=== PATIENT | female | born 1965 | race Caucasian/White ===

== ENCOUNTER 2020-07-18 14:28 | Outpatient (CLI) | payer OTHER, SELFPAY ==
--- NOTE | 2020-07-18 14:30 | MM_ITS ---
WS: [id number] SCREENING DIGITAL MAMMOGRAM WITH CAD HISTORY: SCREENING COMPARISON: 10/17/2016, 12/29/2018 and 10/30/2017 Bilateral CC and MLO views submitted. Computer aided detection analyzed. Breast composition: There are scattered areas of fibroglandular density. 8mm nodule posterior LEFT breast near 3:00. There is an additional nodule towards the upper outer soren drant which has been present on multiple prior examinations and stable. Otherwise the parenchymal pat tern is stable. MM/[id number] IMPRESSION: BI-RADS: 0-Incomplete: Need additional imaging evaluation FOLLOW UP: Need Additional Imaging LEFT breast: Spot compression views (CC and MLO). True ML. Ultrasound to follow if abnormality persists.
== END 2020-07-18 14:29 | disposition home or self-care (01) ==
LOC: RADSHAW 14:28
PROVIDERS: PCP Family Medicine; Visit Provider Family Medicine
DX: Z12.31 Encounter for screening mammogram for malignant neoplasm of breast (principal)
CPT/HCPCS: 77067

== ENCOUNTER 2020-08-14 12:10 | Outpatient (CLI) | payer OTHER, SELFPAY ==
--- NOTE | 2020-08-14 12:28 | MM_ITS ---
WS: [id number] ADDITIONAL VIEWS LEFT MAMMOGRAM LEFT BREAST ULTRASOUND HISTORY: 8 MM NODULE COMPARISON: 07/18/2020, 12/29/2018 LEFT MAMMOGRAM: Spot compression views and true ML. Slightly lobulated 8 mm mass in the LEFT breast at 3-4 o'clock. Persists on additional imaging. LEFT BREAST ULTRASOUND 2-D and color Doppler imaging submitted. At 4:00, 7 cm from the nipple is a hypoechoic mass which is slightly ovoid and lobulated in shape cipriano suring 7 x 6 x 5 mm. This corresponds to the mass seen by mammography. There are additional prominent ducts at 3:00 2 cm from the nipple. MM/[place] [id number] IMPRESSION: BI-RADS: 3-Probably Benign FOLLOW UP: 6 Month Follow-up Hypoechoic nodule which is probably a complex cyst at 4:00, 7 cm from the nippl e. Recommend 6 month LEFT breast follow-up by ultrasound.
== END 2020-08-14 12:11 | disposition home or self-care (01) ==
LOC: RADSHAW 12:15
PROVIDERS: PCP Family Medicine; Visit Provider Family Medicine
DX: N63.23 Unspecified lump in the left breast, lower outer quadrant (principal)
CPT/HCPCS: 76642; 77065

== ENCOUNTER 2021-01-28 07:39 | Outpatient (CLI) | payer OTHER, SELFPAY ==
--- NOTE | 2021-01-28 07:44 | US_ITS ---
WS: [id number] ULTRASOUND BREAST LEFT TECHNIQUE: Ultrasound left breast focused area of concern. CLINICAL INFORMATION: LT BREAST NODULE 6 MO F/U COMPARISON: August 14, 2020 FINDINGS: Again seen is the hypoechoic nodule the 4:00 position 7 cm from the nipple which appears cystic and m easures 7.8 x 5.9 x 5.3 mm unchanged and appearance since August 14, 2020. One or 2 small septations . Additional cysts in the left breast at the 3:00 position 2 cm from the nipple measuring 7 to 8 mm sim ilar to previous. Mild ductal ectasia. Findings have a benign appearance and recommend return to [facility] screening mammography. US/US breast LT limited* [id number] IMPRESSION: BI-RADS 2 benign RECOMMEND RETURN TO ANNUAL SCREENING MAMMOGRAPHY.
== END 2021-01-28 07:40 | disposition home or self-care (01) ==
LOC: RADSHAW 07:42
PROVIDERS: PCP Family Medicine; Visit Provider Family Medicine
DX: N63.20 Unspecified lump in the left breast, unspecified quadrant (principal)
CPT/HCPCS: 76642

== ENCOUNTER 2021-09-06 08:00 | Outpatient (CLI) | payer OTHER, SELFPAY ==
--- NOTE | 2021-09-06 08:16 | MM_ITS ---
WS: [id number] Exam: [place] [id number] Date/Time of Exam: 09/06/2021 8:30 AM Reason For Exam: SCREENING VIEWS: MLO and CC views both breasts. Comparison made with prior exam of 10/20/2017, 12/29/2018, and 07/18/2020. Findings: There are stable appearing nodular densities in both breasts. No suspicious calcification or architec tural distortion. Scattered fibroglandular densities MM/[place] [id number] Impression: BI-RADS: 2-Benign FOLLOW-UP: 1 Year Follow-up This mammogram was also analyzed by the Computer Aided Detection System R2 Imag e Uptwister Tender.
== END 2021-09-06 08:01 | disposition home or self-care (01) ==
LOC: RADSHAW 08:05
PROVIDERS: PCP Family Medicine; Visit Provider Family Medicine
DX: Z12.31 Encounter for screening mammogram for malignant neoplasm of breast (principal)
CPT/HCPCS: 77067

== ENCOUNTER 2022-09-24 09:32 | Outpatient (CLI) | payer OTHER, SELFPAY ==
--- NOTE | 2022-09-24 09:37 | MM_ITS ---
WS: [id number] BILATERAL SCREENING DIGITAL TOMOSYNTHESIS MAMMOGRAM WITH CAD HISTORY: SCREENING COMPARISON: 09/06/2021 and 07/18/2020 Bilateral CC and MLO views with tomosynthesis and synthetic mammography submitted. Computer aided det ection analyzed. Breast composition: There are scattered areas of fibroglandular density. No suspicious masses, microc alcifications or architectural distortion. Dense fibroglandular tissue in the anterior breast. A few benign calcifications. MM/[place] [id number] IMPRESSION: BI-RADS: 2-Benign FOLLOW UP: 1 Year Follow-up
== END 2022-09-24 09:33 | disposition home or self-care (01) ==
LOC: RAD 09:33
PROVIDERS: PCP Family Medicine; Visit Provider Family Medicine
DX: Z12.31 Encounter for screening mammogram for malignant neoplasm of breast (principal)
CPT/HCPCS: 77063; 77067

== ENCOUNTER 2023-10-05 08:52 | Outpatient (CLI) | payer OTHER, SELFPAY ==
--- NOTE | 2023-10-05 09:21 | MM_ITS ---
WS: [id number] BILATERAL SCREENING DIGITAL TOMOSYNTHESIS MAMMOGRAM WITH CAD HISTORY: SCREENING COMPARISON: None available. Bilateral CC and MLO views with tomosynthesis and synthetic mammography submitted. Computer aided det ection analyzed. Breast composition: There are scattered areas of fibroglandular density. No suspicious masses, microc alcifications or architectural distortion. There are a few scattered benign calcifications and intram ammary lymph nodes. IMPRESSION: MM/[place] [id number] BI-RADS: 2-Benign FOLLOW UP: 1 Year Follow-up
== END 2023-10-05 08:53 | disposition home or self-care (01) ==
LOC: RAD 08:52
PROVIDERS: PCP Family Medicine; Visit Provider Family Medicine
DX: Z12.31 Encounter for screening mammogram for malignant neoplasm of breast (principal)
CPT/HCPCS: 77063; 77067

== ENCOUNTER 2024-05-04 12:18 | Emergency (ER) | payer OTHER, SELFPAY ==
[2024-05-04 12:22] VITALS: BP 168/98; PULSE 109; RESP 16; TEMP 36.8; O2SAT 96; BMI 45.1
--- NOTE | 2024-05-04 12:38 | CT_ITS ---
WS: [id number] CT ABDOMEN PELVIS TECHNIQUE: Noncontrast CT of the abdomen and pelvis with coronal and sagittal reformatted images. CLINICAL INFORMATION: flank pain COMPARISON: None. DLP: 1223.[address] scans at [facility] use at least one of these dose optimization techniques: automated e xposure control; mA and/or kV adjustment per patient size (includes targeted exams where dose is matc hed to clinical indication); or iterative reconstruction. FINDINGS: Small esophageal hernia. Small nodule on the RIGHT fissure measuring 4 mm. Mild diffuse fatty infiltr ation of the liver. Mild hepatomegaly. Small liver cysts. Small cysts or hemangiomas in the spleen. Adrenal glands are normal. Normal noncontrast pancreas. No hydronephrosis in either kidney. No obstru cting renal or ureteral calculi. Normal caliber abdominal aorta. Aortic calcification. No free fluid in the abdomen or pelvis. Anteverted uterus. Disc osteophyte complexes at L1-2 and L4-5 with moderate central canal stenosis L1-2 and moderate to severe central canal stenosis L4-5. CT/CT kidney stone [id number] IMPRESSION: 1. No hydronephrosis in either kidney. 2. No obstructing renal or ureteral calculi. 3. Moderate central canal stenosis L1-2 and moderate to severe L4-5 due to dis c osteophyte complexes. 4. Small esophageal hiatal hernia.
--- NOTE | 2024-05-04 12:54 | ED_ITS ---
HPI - Abdominal Pain 2 General: Chief Complaint: Abdominal Pain Stated Complaint: blood in urine, back pain, referral from [facility] Time Seen by Provider: 05/04/24 12:37 Source: patient Mode of arrival: ambulatory History of Present Illness: 59-year-old female presents emergency ro om complaining of hematuria and left flank pain radiating to her groin that began yesterday she was seen as an outpatient presumed to have a bladder infection treated first day. Pain is worsened she presents emergency room today at the direction of the outpatient clinic after culture came back negative. She has had increasing hematuria as well. No vomiting no diarrhea no fever sweats or chills no shortness of breath or chest pain MD elicited complaint: flank pain Onset (ago): day(s) Pain Consistency: constant Location: L flank Severity: severe Quality: sharp Radiation: other Exacerbating factors: nothing Relieving factors: nothing Associated Symptoms: Denies anorexia, belching, bloating, change in bowel habits, change in stool character, chills, coffee ground emesis, constipation, GI cramping, diarrhea, dyspepsia, dysuria, excessive flatus, fever(s), heartburn, hematochezia, hematuria, hematemesis, fecal incontinence, loose stools, melena, nausea, poor appetite, syncope and vomiting Review of Systems 2 Const: Denies: fever(s) or chills Card: Denies: chest pain or syncope Resp: Denies: dyspnea GI: Denies: abdominal pain, nausea, vomiting, hematemesis, coffee ground emesis, heartburn, diarrhea, constipation, bloating, GI cramping, belching, excessive flatus, fecal incontinence, change in bowel habits, change in stool character, hematochezia or melena : Denies: dysuria, urinary frequency, urinary urgency or hematuria Musc: Denies: neck pain or back pain Skin/Breast: Denies: rash Physical Exam 2 Const: GENERAL APPEARANCE: cooperative ORIENTATION/CONSCIOUSNESS: Yes awake, Yes oriented to person, Yes oriented to place and Yes oriented to time HENMT: COMMON NORMALS: normocephalic, atraumatic and hearing grossly normal bilaterally HEAD & SCALP: normocephalic and atraumatic Resp: COMMON NORMALS: normal respiratory effort, No retractions, No use of accessory muscles and clear to auscultation bilaterally AUSCULTATION: clear to auscultation bilaterally Cardio: COMMON NORMALS: regular rate, regular rhythm and No murmurs present (Cardio) RATE: regular rate RHYTHM: regular rhythm GI: COMMON NORMALS: Soft to palpation and No hepatosplenomegaly present A USCULTATION: Yes normoactive bowel sounds PALPATION: Yes Soft to palpation, No Tenderness to palpation present (GI), No Guarding due to palpation present (GI) and Yes No hepatosplenomegaly present : COMMON NORMALS: Yes no CVA tenderness BLADDER/KIDNEY EXAM: Yes no CVA tenderness and Yes CVA tenderness Back/Pelvis: COMMON NORMALS: no CVA tenderness GENERAL BACK: Yes CVA tenderness CVA tenderness: left Extremity: COMMON NORMALS: normal to inspection, capillary refill normal, no clubbing, cyanosis or edema, no calf tenderness and no pedal edema Neuro: SENSORIUM/ORIENTATION: Yes oriented to person, Yes oriented to place and Yes oriented to time Skin: COMMON NORMALS: no rashes or lesions noted GENERAL SKIN EXAM: no rashes or lesions noted Course 2 Vital Signs: Vital signs: Vital Signs Temperature 98.3 F 05/04/24 12:22 Pulse Rate 103 H 05/04/24 14:28 Respiratory Rate 16 05/04/24 12:22 Blood Pressure 163/141 05/04/24 14:28 Pulse Oximetry 96 05/04/24 14:28 Oxygen Delivery Me thod Room Air 05/04/24 12:22 MDM - Abdominal Pain Medical Decision Making Urine shows 50-100 white blood cells or outfield. Will switch to cefdinir. Culture urine patient did a mild leukocytosis but has a persistent fever return. CT did not show any sign of obstruction or nephrolithiasis. Medical Records I reviewed the patient's medical records. Lab Data I reviewed the patient's lab results. 05/04/24 12:55 05/04/24 12:55 Labs/Radiology: Radiology Impressions Abdomen/Pelvis CT 05/04/24 12:38 IMPRESSION: 1. No hydronephrosis in either kidney. 2. No obstructing renal or ureteral calculi. 3. Moderate central canal stenosis L1-2 and moderate to severe L4-5 due to disc osteophyte complexes. 4. Small esophageal hiatal hernia. Laboratory Results WBC 12.70 10^3/uL (3.29-11.43) H 05/04/24 12:55 RBC 5.11 10^6/uL (3.85-5.65) 05/04/24 12:55 Hgb 14.80 g/dL (11.27-16.99) 05/04/24 12:55 Hct 45.2 % (36-47) 05/04/24 12:55 MCV 88.5 fl (85-98) 05/04/24 12:55 MCH 29.0 pg (27-33) 05/04/24 12:55 MCHC 32.7 g/dL (30-55) 05/04/24 12:55 RDW 13.2 % (12.1-15.1) 05/04/24 12:55 Plt Count 391 10^3/cmm (157-399) 05/04/24 12:55 MPV 8.9 fL (7.4-10.4) 05/04/24 12:55 Neut % (Auto) 59.1 % 05/04/24 12:55 Lymph % (Auto) 34.3 % 05/04/24 12:55 [place] % (Auto) 4.9 % 05/04/24 12:55 Eos % (Auto) 1.0 % 05/04/24 12:55 Baso % (Auto) 0.5 % 05/04/24 12:55 Neut # (Auto) 7.51 10^3/uL (1.8-7.7) 05/04/24 12:55 Lymph # (Auto) 4.4 10^3/uL (0.8-4.8) 05/04/24 12:55 [place] # (Auto) 0.6 10^3/uL (0.2-0.9) 05/04/24 12:55 Eos # (Auto) 0.1 10^3/uL (0.0-0.8) 05/04/24 12:55 Baso # (Auto) 0.1 10^3/uL (0.0-0.1) 05/04/24 12:55 Nucleated RBC % (auto) 0 % 05/04/24 12:55 Nucleated RBCs # 0.0 /100WBC 05/04/24 12:55 Sodium 140 mmol/L (136-145) 05/04/24 12:55 Potassium 4.0 mmol/L (3.5-5.1) 05/04/24 12:55 Chloride 104 mmol/L (98-107) 05/04/24 12:55 Carbon Dioxide 19 mmol/L (22-29) L 05/04/24 12:55 Anion Gap 21.0 (5-19) H 05/04/24 12:55 BUN 9 mg/dL (8-23) 05/04/24 12:55 Creatinine 0.7 mg/dL (0.5-0.9) 05/04/24 12:55 GFR Calculation 85.4 mL/min (90-130) L 05/04/24 12:55 Glucose 92 mg/dL (65-115) 05/04/24 12:55 Calculated Osmolality 288 mOsm/kg (285-295) 05/04/24 12:55 Lactic Acid 1.0 mmol/L (0.5-2.2) 05/04/24 12:55 Calcium 9.3 mg/dL (8.5-10.5) 05/04/24 12:55 Total Bilirubin 0.8 mg/dL (0.15-1.2) 05/04/24 12:55 AST 17 U/L (0-32) 05/04/24 12:55 ALT 16 U/L (0-33) 05/04/24 12:55 Alkaline Phosphatase 84 U/L (35-105) 05/04/24 12:55 Total Protein 7.6 g/dL (6.6-8.7) 05/04/24 12:55 Albumin 4.2 g/dL (3.5-5.2) 05/04/24 12:55 Globulin 3.4 g/dL (1.3-4.6) 05/04/24 12:55 Urine Color Yellow (Yellow) 05/04/24 12:41 Urine Appearance Slightly cloudy (CLEAR) 05/04/24 12:41 Urine pH 5 (5-7) 05/04/24 12:41 Ur Specific [place] 1.020 (1.005-1.030) 05/04/24 12:41 Urine Protein 1+ (Negative) H 05/04/24 12:41 Urine Glucose (UA) Norm (Normal) 05/04/24 12:41 Urine Ketones 2+ (Negative) H 05/04/24 12:41 Urine Blood 3+ (Negative) H 05/04/24 12:41 Urine Nitrate Negative (Negative) 05/04/24 12:41 Urine Bilirubin Neg (Negative) 05/04/24 12:41 Urine Urobilinogen 1 mg/dL (Negative) H 05/04/24 12:41 Ur Leukocyte Esterase Trace (Negative) H 05/04/24 12:41 Urine RBC 0-4 /hpf (0-2) H 05/04/24 12:41 Urine WBC 51-100 /hpf (0-5) 05/04/24 12:41 Ur Squamous Epith Cells 0-4 /hpf (0-5) H 05/04/24 12:41 Amorphous Sediment Not Reportable 05/04/24 12:41 Urine Bacteria 1+ /hpf (NONE) H 05/04/24 12:41 All radiology interpretation(s) finalized by discharge Discharge Plan Discharge Patient Disposition: Home Clinical Impression: Cystitis Condition: Stable Prescriptions: New cefdinir 300 mg capsule 300 mg PO BID 10 Days Qty: 20 0RF Discontinued amoxicillin-pot clavulanate [Augmentin] 875-125 mg Tablet 1 tab PO BID No Action cetirizine 10 mg Tablet 10 mg PO DAILY lisinopril 5 mg tablet 5 mg PO DAILY albuterol sulfate 90 mcg/actuation HFA aerosol inhaler 1 puff INHALATION Q4H PRN (Reason: Wheezing) Discharge Orders: Discharge ED (Routine); Ordered 05/04/24 Ordered By: Chemo Morrison Referrals: Juan Pickett MD [Primary Care Provider] - Discharge Diet: Usual diet Discharge Activity: Increase activity as tolerated Patient Instructions: Urinary Tract Infection in Women (ED), Opioid Safety, Pain Management Activity Restrictions/Additional Instructions: Thank you for choosing [facility] for your healthcare needs today. It is very important that you follow up as instructed or that you return to the Emergency Department should you have concerns or if your condition changes or worsens in any way. You are seen in the emergency room with complaint of flank pain. Your white count was slightly elevated there is a large number of white blood cells in her urine. The urine will be cultured. Recommend stopping the Augmentin and starting on cefdinir 301 tablet twice daily. Follow-up with your primary care doctor Coding Level of Care Code ED Boat Driver for Ruby Hoskins
[2024-05-04 13:01] LABS: Add Urine Microscopic? YES; Bilirubin Urine Neg (Negative); Blood Urine 3+ (Negative); Glucose Urine UA Norm (Normal); Ketones Urine 2+ (Negative); Leukocyte Esterase Urine Trace (Negative); Nitrate Urine Negative (Negative); Protein Urine 1+ (Negative); Urine Appearance Slightly Cloudy (CLEAR); Urine Color Yellow (Yellow); Urobilinogen Urine 1 mg/dL (Negative); pH Urine 5 (5-7)
[2024-05-04 13:02] LABS: RBC Urine 0-4 /hpf (0-2)
[2024-05-04 13:03] LABS: Add Urine Culture? Yes; Bacteria Urine 1+ /hpf; Squamous Epithelial Cell Urine 0-4 /hpf (0-5); WBC Urine 51-100 /hpf (0-5)
[2024-05-04 13:16] VITALS: BP 163/141; PULSE 105; O2SAT 96
[2024-05-04 13:19] LABS: Basophils # 0.1 10^3/uL (0.0-0.1); Basophils % 0.5 %; Eosinophils # 0.1 10^3/uL (0.0-0.8); Hematocrit 45.2 % (36-47); Lymphocytes # 4.4 10^3/uL (0.8-4.8); Lymphocytes % 34.3 %; Mean Corpuscular HGB Conc 32.7 g/dL (30-55); Mean Corpuscular Volume 88.5 fl (85-98); Mean Platelet Volume 8.9 fL (7.4-10.4); Monocytes # 0.6 10^3/uL (0.2-0.9); Monocytes % 4.9 %; Neutrophils # 7.51 10^3/uL (1.8-7.7); Neutrophils % 59.1 %; Nucleated Red Blood Cells % 0 %; Platelet Count 391 10^3/cmm (157-399); Red Blood Count 5.11 10^6/uL (3.85-5.65); Red Cell Distribution Width 13.2 % (12.1-15.1)
[2024-05-04 13:43] LABS: Alanine Aminotransferase 16 U/L (0-33); Albumin Level 4.2 g/dL (3.5-5.2); Alkaline Phosphatase 84 U/L (35-105); Aspartate Amino Transferase 17 U/L (0-32); Blood Urea Nitrogen 9 mg/dL (8-23); Calcium 9.3 mg/dL (8.5-10.5); Carbon Dioxide 19 mmol/L (22-29); Chloride 104 mmol/L (98-107); Creatinine Clr Calc Pharmacy 116.5477; Globulin 3.4 g/dL (1.3-4.6); Glomerular Filtration Rate 85.4 mL/min (90-130); Glucose 92 mg/dL (65-115); Osmolality Calculated 288 mOsm/kg (285-295); Sodium 140 mmol/L (136-145); Total Bilirubin 0.8 mg/dL (0.15-1.2); Total Protein 7.6 g/dL (6.6-8.7)
[2024-05-04 14:28] VITALS: BP 163/141; PULSE 103; O2SAT 96
== END 2024-05-04 14:00 | disposition home or self-care (01) ==
PROVIDERS: Emergency Provider Family Medicine; PCP Family Medicine
DX: N30.90 Cystitis, unspecified without hematuria (principal)
CPT/HCPCS: 36415; 74176; 80053; 81001; 83605; 85025; 87040; 87086; 99284

== ENCOUNTER 2024-08-13 06:38 | Inpatient (IN) | payer OTHER, SELFPAY ==
[2024-08-13] VITALS (49 sets, daily range): BP systolic 111–176; BP diastolic 44–149; PULSE 82–148; RESP 16–34; TEMP 36.6–37; O2SAT 92–100; BMI 38.7
--- NOTE | 2024-08-13 06:52 | XRR_ITS ---
PROCEDURE INFORMATION: Exam: XR Chest Exam date and time: 08/13/2024 6:59 AM Age: 59 years old Clinical indication: Cough and dyspnea; TECHNIQUE: Imaging protocol: Radiologic exam of the chest. Views: 1 view. COMPARISON: CR XR chest 1V [id number] 02/08/2019 10:42 PM FINDINGS: Lungs: Unremarkable. No consolidation. Pleural spaces: Unremarkable. No pleural effusion. No pneumothorax. Heart/Mediastinum: Unremarkable. No cardiomegaly. Bones/joints: Unremarkable. XR/XR chest 1V portable [id number] IMPRESSION: No acute findings.
--- NOTE | 2024-08-13 06:54 | ED_ITS ---
HPI - Arrhythmia/Palpitations 2 General: Chief Complaint: Arrhythmia/Palpitations Stated Complaint: SOB, CP Time Seen by Provider: 08/13/24 06:52 History of Present Illness: 59-year-old female who presents to the e mergency room with complaints of palpitations racing heart rate shortness of breath and some mild chest comfort radiated to her neck and back. This began suddenly overnight that he said he woke up with a drug 2 AM she has not had any fever sweats chills or cough recently. She has no known history of any coronary artery disease no known history of any arrhythmias. She is on lisinopril for blood pressure as well as albuterol as needed for asthma-like symptoms she has not recently had any issues with her asthma and has not been using regular amounts of albuterol recently Related Data Home Medications Medication Instructions Recorded Confirmed albuterol sulfate 90 mcg/actuation 1 puff inhalation Q4H PRN Wheezing 05/04/24 05/04/24 aerosol inhaler cetirizine 10 mg tablet 10 mg PO DAILY 05/04/24 05/04/24 lisinopril 5 mg tablet 5 mg PO DAILY 05/04/24 05/04/24 Allergies Allergy/AdvReac Type Severity Reaction Status Date / Time azithromycin [From Zithromax] Allergy ALGY-Swell Verified 05/04/24 12:28 Lip/Tongue/Throat ciprofloxacin [From Cipro] Allergy ALGY-Hives Verified 05/04/24 12:27 Egg Derived Allergy Unknown Verified 05/04/24 12:28 peanut Allergy Unknown Verified 05/04/24 12:28 Review of Systems 2 Const: Denies: fever(s) or chills Card: Reports: palpitations and irregular heart rhythm; Denies: chest pain Resp: Denies: dyspnea GI: Denies: abdominal pain : Denies: dysuria, urinary frequency or urinary urgency Musc: Denies: neck pain or back pain Skin/Breast: Denies: rash PFSH ED 2 PFSH: Medical History (Updated 08/13/24 @ 11:15 by Chemo Morrison DO) Asthma Hypertension Physical Exam 2 Const: GENERAL APPEARANCE: cooperative ORIENTATION/CONSCIOUSNESS: Yes awake, Yes oriented to person, Yes oriented to place and Yes oriented to time HENMT: COMMON NORMALS: normocephalic, atraumatic and hearing grossly normal bilaterally HEAD & SCALP: normocephalic and atraumatic Resp: COMMON NORMALS: normal respiratory effort, No retractions, No use of accessory muscles and clear to auscultation bilaterally AUSCULTATION: clear to auscultation bilaterally Cardio: COMMON NORMALS: No murmurs present (Cardio) RATE: tachycardic R HYTHM: abnormal rhythm irregularly irregular GI: COMMON NORMALS: Soft to palpation and No hepatosplenomegaly present A USCULTATION: Yes normoactive bowel sounds PALPATION: Yes Soft to palpation, No Tenderness to palpation present (GI), No Guarding due to palpation present (GI) and Yes No hepatosplenomegaly present Extremity: COMMON NORMALS: normal to inspection, capillary refill normal, no clubbing, cyanosis or edema, no calf tenderness and no pedal edema Neuro: SENSORIUM/ORIENTATION: Yes oriented to person, Yes oriented to place and Yes oriented to time Skin: COMMON NORMALS: no rashes or lesions noted GENERAL SKIN EXAM: no rashes or lesions noted Course 2 Vital Signs: Vital signs: Vital Signs Temperature 98 F 08/13/24 06:45 Pulse Rate 105 H 08/13/24 08:30 Respiratory Rate 19 H 08/13/24 08:30 Blood Pressure 151/44 08/13/24 08:30 Pulse Oximetry 96 08/13/24 08:30 MDM - Arrhythmia/Palpitations Medical Decision Making A-fib with RVR improved with Cardizem but did need to titrate up rate is now controlled but remains in A-fib. Slight bump in troponin. CTA chest unremarkable. Patient to be admitted for new onset A-fib RVR Medical Records I reviewed the patient's medical records. Lab Data I reviewed the patient's lab results. 08/13/24 07:03 08/13/24 07:03 Radiology Impressions Chest X-Ray 08/13/24 06:52 IMPRESSION: No acute findings. Chest CTA 08/13/24 07:13 IMPRESSION: 1. Mild cardiomegaly. 2. There is a 3 mm nodule in the right lower lobe along the oblique fissure.For patients at low risk (minimal or absent history of smoking and of other known risk factors), no routine follow-up is indicated. For patients at high risk (history of smoking or of other known risk factors), consider optional CT Chest at 12 months. (Reference: Kika) COMMENTS: Consistent with the [place] [employer]'s Incidental Findings Committee white paper (J Am Payton Radiol 2015): In patients aged 35 years and older with an incidental thyroid nodule equal to or greater than 1.[address], MRI or extrathyroidal US, further evaluation with dedicated thyroid US is recommended for patients with normal life expectancy and without comorbidities. For smaller nodules without suspicious features, no further evaluation or follow up is recommended. REFERENCES: Kika Escalante et al. Guidelines for Management of Incidental Pulmonary Nodules Detected on CT Images: From the Fleischner Society 2017. Radiology. 2017;284(1):228-243. Laboratory Results WBC 13.29 10^3/uL (3.29-11.43) H 08/13/24 07:03 RBC 5.20 10^6/uL (3.85-5.65) 08/13/24 07:03 Hgb 15.00 g/dL (11.27-16.99) 08/13/24 07:03 Hct 45.6 % (36-47) 08/13/24 07:03 MCV 87.7 fl (85-98) 08/13/24 07:03 MCH 28.8 pg (27-33) 08/13/24 07:03 MCHC 32.9 g/dL (30-55) 08/13/24 07:03 RDW 13.5 % (12.1-15.1) 08/13/24 07:03 Plt Count 463 10^3/cmm (157-399) H 08/13/24 07:03 MPV 9.0 fL (7.4-10.4) 08/13/24 07:03 Neut % (Auto) 72.9 % 08/13/24 07:03 Lymph % (Auto) 23.3 % 08/13/24 07:03 [place] % (Auto) 2.4 % 08/13/24 07:03 Eos % (Auto) 0.6 % 08/13/24 07:03 Baso % (Auto) 0.5 % 08/13/24 07:03 Neut # (Auto) 9.69 10^3/uL (1.8-7.7) H 08/13/24 07:03 Lymph # (Auto) 3.1 10^3/uL (0.8-4.8) 08/13/24 07:03 [place] # (Auto) 0.3 10^3/uL (0.2-0.9) 08/13/24 07:03 Eos # (Auto) 0.1 10^3/uL (0.0-0.8) 08/13/24 07:03 Baso # (Auto) 0.1 10^3/uL (0.0-0.1) 08/13/24 07:03 Nucleated RBC % (auto) 0 % 08/13/24 07:03 Nucleated RBCs # 0.0 /100WBC 08/13/24 07:03 Sodium 135 mmol/L (136-145) L 08/13/24 07:03 Potassium 4.5 mmol/L (3.5-5.1) 08/13/24 07:03 Chloride 98 mmol/L (98-107) 08/13/24 07:03 Carbon Dioxide 25 mmol/L (22-29) 08/13/24 07:03 Anion Gap 16.5 (5-19) 08/13/24 07:03 BUN 8 mg/dL (8-23) 08/13/24 07:03 Creatinine 0.7 mg/dL (0.5-0.9) 08/13/24 07:03 GFR Calculation 85.4 mL/min (90-130) L 08/13/24 07:03 Glucose 134 mg/dL (65-115) H 08/13/24 07:03 Calculated Osmolality 280 mOsm/kg (285-295) L 08/13/24 07:03 Calcium 9.3 mg/dL (8.5-10.5) 08/13/24 07:03 Total Bilirubin 0.7 mg/dL (0.15-1.2) 08/13/24 07:03 AST 15 U/L (0-32) 08/13/24 07:03 ALT 14 U/L (0-33) 08/13/24 07:03 Alkaline Phosphatase 99 U/L (35-105) 08/13/24 07:03 Troponin T Baseline 24 ng/L (0-10) H 08/13/24 07:03 Troponin T 120 Minute 30.46 ng/L (0-10) H 08/13/24 09:26 Delta Troponin T 6.46 ABS# (0-10) 08/13/24 09:26 NT-Pro-B Natriuret Pep 202 pg/mL (0-125) H 08/13/24 07:03 Total Protein 7.4 g/dL (6.6-8.7) 08/13/24 07:03 Albumin 4.2 g/dL (3.5-5.2) 08/13/24 07:03 Globulin 3.2 g/dL (1.3-4.6) 08/13/24 07:03 Procalcitonin 0.05 ng/mL (0-0.5) 08/13/24 07:03 TSH 1.59 uIU/mL (0.27-4.20) 08/13/24 07:03 TSH Cancelled 08/13/24 07:03 All radiology interpretation(s) finalized by discharge Discharge Plan Discharge Patient Disposition: Admitted As Inpatient Admit Provider: Latricia Horton Clinical Impression: Atrial fibrillation Condition: Stable Coding Level of Care Code ED Mechanical Unit Repairer for Ruby Hoskins
[2024-08-13] MEDS: dilTIAZem 5 mg/mL SDV 5 mL 20 MG IVP (07:09)
--- NOTE | 2024-08-13 07:10 | ECG_ITS ---
[employer] Test Date: 2024-08-13 Pat Name: Dunia Harding Department: Room: Gender: Female Route Sales Person: : 1965 Requested By: Chemo Mathews Order Number: [id number] Joanne MD: Priscilla Chaidez M.D. Measurements Intervals [place] Rate: 89 P: 0 IN: 0 QRS: 28 QRSD: 107 T: 36 QT: 354 QTc: 432 Interpretive Statements ATRIAL FIBRILLATION INCOMPLETE RIGHT BUNDLE BRANCH BLOCK [90+ ms QRS DURATION, TERMINAL R IN V1/V2, 40+ ms S IN I/aVL/V4/V5/V6] ABNORMAL RHYTHM ECG No previous ECG available for comparison Electronically Signed On 08-16-2024 00:54:18 CDT by Priscilla Chaidez M.D. [email or web address]
[2024-08-13 07:11] LABS: Basophils # 0.1 10^3/uL (0.0-0.1); Basophils % 0.5 %; Eosinophils # 0.1 10^3/uL (0.0-0.8); Eosinophils % 0.6 %; Hematocrit 45.6 % (36-47); Lymphocytes # 3.1 10^3/uL (0.8-4.8); Lymphocytes % 23.3 %; Mean Corpuscular HGB Conc 32.9 g/dL (30-55); Mean Corpuscular Hemoglobin 28.8 pg (27-33); Mean Corpuscular Volume 87.7 fl (85-98); Monocytes # 0.3 10^3/uL (0.2-0.9); Monocytes % 2.4 %; Neutrophils # 9.69 10^3/uL (1.8-7.7); Neutrophils % 72.9 %; Nucleated Red Blood Cells % 0 %; Platelet Count 463 10^3/cmm (157-399); Red Cell Distribution Width 13.5 % (12.1-15.1); White Blood Count 13.29 10^3/uL (3.29-11.43)
--- NOTE | 2024-08-13 07:13 | CTR_ITS ---
PROCEDURE INFORMATION: Exam: CTA Chest Without And With Contrast Exam date and time: 08/13/2024 7:51 AM Age: 59 years old Clinical indication: Pain; Left-sided; Chest pain radiating into back TECHNIQUE: Imaging protocol: Computed tomographic angiography of the chest without and with contrast. Exam focused on the arteries. 3D rendering (Not supervised by radiologist): MIP and/or 3D reconstructed images were created by the technologist. Radiation optimization: All CT scans at this facility use at least one of these dose optimization techniques: automated exposure control; mA and/or kV adjustment per patient size (includes targeted exams where dose is matched to clinical indication); or iterative reconstruction. Contrast material: OMNI 350; Contrast volume: 100 ml; Contrast route: INTRAVENOUS (IV); COMPARISON: CR (CHEST, ) 08/13/2024 6:59 AM RADIATION DOSE METRICS: Total DLP (mGy-cm): 1162.94 FINDINGS: Pulmonary arteries: Normal. No pulmonary emboli. Aorta: Unremarkable. No aortic aneurysm. No aortic dissection. Thyroid: Subcentimeter nodules in the left thyroid lobe. No follow-up is recommended. Lungs: Unremarkable. No consolidation. No masses. Pleural spaces: 3 mm nodule at the lateral aspect of the right lower lobe along the oblique fissure. Heart: Mild cardiomegaly. Coronary arteries: No coronary artery calcifications. Lymph nodes: Unremarkable. No enlarged lymph nodes. Bones/joints: Unremarkable. No acute fracture. Soft tissues: Unremarkable. CT/CT angio chest 48333 IMPRESSION: 1. Mild cardiomegaly. 2. There is a 3 mm nodule in the right lower lobe along the oblique fissure.For patients at low risk (minimal or absent history of smoking and of other known risk factors), no routine follow-up is indicated. For patients at high risk (history of smoking or of other known risk factors), consider optional CT Chest at 12 months. (Reference: Kika) COMMENTS: Consistent with the [employer]'s Incidental Findings Committee white paper (J Am Payton Radiol 2015): In patients aged 35 years and older with an incidental thyroid nodule equal to or greater than 1.[address], MRI or extrathyroidal US, further evaluation with dedicated thyroid US is recommended for patients with normal life expectancy and without comorbidities. For smaller nodules without suspicious features, no further evaluation or follow up is recommended. REFERENCES: Kika Escalante, et al. Guidelines for Management of Incidental Pulmonary Nodules Detected on CT Images: From the Fleischner Society 2017. Radiology. 2017;284(1):228-243.
[2024-08-13] MEDS: dilTIAZem 100 MG in sodium chloride 0.9% (add-van) 100 ML IV (07:16)
[2024-08-13] MEDS: morphine 4 mg/mL SDV 1 mL IVP (07:22)
[2024-08-13 07:31] LABS: Troponin(5th) Baseline 24 ng/L (0-10)
[2024-08-13 07:36] LABS: Alanine Aminotransferase 14 U/L (0-33); Albumin Level 4.2 g/dL (3.5-5.2); Alkaline Phosphatase 99 U/L (35-105); Blood Urea Nitrogen 8 mg/dL (8-23); Calcium 9.3 mg/dL (8.5-10.5); Carbon Dioxide 25 mmol/L (22-29); Chloride 98 mmol/L (98-107); Creatinine Clr Calc Pharmacy 106.7557; Globulin 3.2 g/dL (1.3-4.6); Glomerular Filtration Rate 85.4 mL/min (90-130); Glucose 134 mg/dL (65-115); Osmolality Calculated 280 mOsm/kg (285-295); Sodium 135 mmol/L (136-145); Thyroid Stimulating Hormone 1.59 uIU/mL (0.27-4.20); Total Bilirubin 0.7 mg/dL (0.15-1.2); Total Protein 7.4 g/dL (6.6-8.7)
[2024-08-13 07:49] LABS: Anion Gap 16.5 (5-19); Aspartate Amino Transferase 15 U/L (0-32); Potassium 4.5 mmol/L (3.5-5.1)
[2024-08-13] MEDS: iohexol 350 mg/mL 500 mL Btl (per mL) IV (08:17)
[2024-08-13 09:45] LABS: Troponin 5 2HR 30.46 ng/L (0-10); Troponin 5 2HR Delta 6.46 ABS# (0-10)
--- NOTE | 2024-08-13 10:00 | P.HP_ITS ---
Providers/Chief Complaint 2 Primary Care Provider: Juan Pickett MD Chief Complaint: SOB, CP History of Present Illness Dunia Harding is a 59 year old female with past medical history of hypertension presented to the hospital today with complaint of chest pain which she mainly describes as belching and being uncomfortable. 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 Ate a ham sandwich last night. No known cardiac issues in the past. Has never had a stress test. Dad did have a history of A-fib. Takes lisinopril for hypertension. Does have a history of asthma and states last couple of weeks has been feeling short of breath. This morning has been more short of breath. Denies any other complaints at this time. Family at bedside. In ER she was given Cardizem push and started on a Cardizem drip. Medications/Allergies Home Medications Medication Instructions Recorded Confirmed Last Taken Type albuterol sulfate 90 mcg/actuation 1 puff inhalation Q4H PRN Wheezing 05/04/24 05/04/24 Unknown History aerosol inhaler cetirizine 10 mg tablet 10 mg PO DAILY 05/04/24 05/04/24 05/04/24 History lisinopril 5 mg tablet 5 mg PO DAILY 05/04/24 05/04/24 05/04/24 History Allergies Allergy/AdvReac Type Severity Reaction Status Date / Time azithromycin [From Zithromax] Allergy ALGY-Swell Verified 05/04/24 12:28 Lip/Tongue/Throat ciprofloxacin [From Cipro] Allergy ALGY-Hives Verified 05/04/24 12:27 Egg Derived Allergy Unknown Verified 05/04/24 12:28 peanut Allergy Unknown Verified 05/04/24 12:28 PFSH Acute 2 PFSH: Medical History (Updated 08/13/24 @ 11:15 by Chemo Morrison DO) Asthma Hypertension Vitals/I&O/Wt Last Vital Signs Temp 98 F 08/13/24 06:45 Pulse 105 H 08/13/24 08:30 Resp 19 H 08/13/24 08:30 BP 151/44 08/13/24 08:30 Pulse Ox 96 08/13/24 08:30 Weight last 48 hrs Weight 108.862 kg Physical Exam 2 Narrative: General: Alert oriented x3, patient seen laying in bed appearing comfortable. HEENT: Normocephalic, atraumatic, EOMI, breathing room air Cardio: Irregular irregular, normal S1-S2, Respiratory: Clear to auscultation bilaterally no wheezes no rhonchi. GI: Abdomen soft, nontender, nondistended, bowel sounds + Extremities: Pulses 2+, no edema, no cyanosis Data 08/13/24 07:03 08/13/24 07:03 A&P Assessment and plan (1) Hypertension: (2) Atrial fibrillation: (3) Asthma: Plan #New onset atrial fibrillation with RVR #Hypertension #Asthma #Chest pain #Hypertensive urgency ? Blood pressure 179/149 at bedside when patient seen. Was given hydralazine 5 IV x 1 ? Patient currently on Cardizem drip at 15. Will continue ? Placed on Lopressor 25 twice daily ? Troponins 24, 30.6, 6-hour pending at this time ? BNP 202 ? TSH 1.59 ? CTA ruled out PE and aortic dissection. ? [id number]: 2: Hypertension, female. Will benefit from anticoagulation. Will discuss with patient ? Placed on heparin subcu twice daily ?EKG does not show any acute ischemic changes at this time. Does show A-fib. ? Check echocardiogram ? Will consider stress testing Thursday. ? DuoNeb every 6 hours as needed ? Clear liquid diet and advance as tolerated ? GI cocktail x 1 Full code DVT prophylaxis: Heparin subcu twice daily Attestations 2 Medical Necessity Statement*: New onset A-fib with RVR, requires Cardizem drip at this time. Diagnoses Hypertension I10 Atrial fibrillation I48.91 Asthma J45.909
[2024-08-13 10:31] LABS: NT Pro B Type Natriuretic Pept 202 pg/mL (0-125); Procalcitonin 0.05 ng/mL (0-0.5)
[2024-08-13] MEDS: heparin 5,000 unit/mL INJ 1 mL 5000 UNIT SUBCUT ×2 (10:40→21:02)
[2024-08-13] MEDS: metoprolol tartrate 25 mg Tablet PO ×2 (10:40→21:01)
[2024-08-13] MEDS: sodium chloride 0.9% 1,000 ML 75 ML IV ×2 (10:40→22:43)
[2024-08-13] MEDS: hyDRALAzine 20 mg/mL INJ 1 mL 5 MG IVP (11:27)
[2024-08-13] MEDS: ondansetron 2 mg/ML SDV 2 mL 4 MG IVP (12:04)
--- NOTE | 2024-08-13 14:06 | ECG_ITS ---
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 Measurements Intervals [place] Rate: 115 P: 0 LA: 0 QRS: 23 QRSD: 98 T: 19 QT: 324 QTc: 449 Interpretive Statements ATRIAL FIBRILLATION WITH RAPID VENTRICULAR RESPONSE INCOMPLETE RIGHT BUNDLE BRANCH BLOCK [90+ ms QRS DURATION, TERMINAL R IN V1/V2, 40+ ms S IN I/aVL/V4/V5/V6] ABNORMAL RHYTHM ECG Compared to ECG 08/13/2024 07:10:33 No significant changes Electronically Signed On 08-16-2024 00:54:11 CDT by Priscilla Chaidez M.D. [email or web address]
[2024-08-13] MEDS: dilTIAZem 100 MG in sodium chloride 0.9% (add-van) 100 ML 10 MG IV (15:33)
[2024-08-13 18:06] LABS: Troponin 5 6HR 25.28 ng/L (0-10)
[2024-08-13 18:08] LABS: Troponin 5 6HR Delta 1.28 ng/L (0-12)
[2024-08-14] VITALS (8 sets, daily range): BP systolic 132–144; BP diastolic 78–101; PULSE 93–115; RESP 13–23; TEMP 36.5–37; O2SAT 92–95
[2024-08-14 04:14] LABS: Basophils % 0.3 %; Eosinophils % 0.1 %; Hematocrit 42.9 % (36-47); Lymphocytes # 4.5 10^3/uL (0.8-4.8); Lymphocytes % 29.7 %; Mean Corpuscular HGB Conc 32.6 g/dL (30-55); Mean Corpuscular Hemoglobin 28.8 pg (27-33); Mean Corpuscular Volume 88.3 fl (85-98); Mean Platelet Volume 8.7 fL (7.4-10.4); Monocytes % 6.7 %; Neutrophils # 9.57 10^3/uL (1.8-7.7); Neutrophils % 62.9 %; Nucleated Red Blood Cells % 0 %; Platelet Count 409 10^3/cmm (157-399); Red Blood Count 4.86 10^6/uL (3.85-5.65); Red Cell Distribution Width 13.9 % (12.1-15.1)
[2024-08-14 04:39] LABS: Alanine Aminotransferase 11 U/L (0-33); Albumin Level 3.9 g/dL (3.5-5.2); Alkaline Phosphatase 82 U/L (35-105); Anion Gap 14.2 (5-19); Aspartate Amino Transferase 12 U/L (0-32); Blood Urea Nitrogen 7 mg/dL (8-23); Calcium 8.8 mg/dL (8.5-10.5); Carbon Dioxide 24 mmol/L (22-29); Chloride 102 mmol/L (98-107); Creatinine Clr Calc Pharmacy 116.0091; Globulin 2.6 g/dL (1.3-4.6); Glomerular Filtration Rate 85.4 mL/min (90-130); Glucose 116 mg/dL (65-115); Osmolality Calculated 281 mOsm/kg (285-295); Phosphorus 3.1 mg/dL (2.5-4.5); Potassium 4.2 mmol/L (3.5-5.1); Sodium 136 mmol/L (136-145); Total Protein 6.5 g/dL (6.6-8.7)
[2024-08-14] MEDS: dilTIAZem 100 MG in sodium chloride 0.9% (add-van) 100 ML IV (05:52)
[2024-08-14] MEDS: metoprolol tartrate 25 mg Tablet PO ×2 (09:09→14:11)
[2024-08-14] MEDS: heparin 5,000 unit/mL INJ 1 mL 5000 UNIT SUBCUT ×2 (09:09→21:35)
--- NOTE | 2024-08-14 09:59 | USCV_ITS ---
Dunia Harding Age: 59 Gender: F : 1965 Exam Date: 08/14/2024 14:56 Ordering Phys: Latricia Horton MD Technologist: Javed Foster Exam Location: [facility] [place] Indication: afib BP: 121 / 103 HR: 99 Rhythm: Sinus Technical Quality: Adequate MEASUREMENTS (Male / Female) Normal Values 2D ECHO LV Diastolic Diameter PLAX 5.0 cm 4.2 - 5.9 / 3.9 - 5.3 cm IVS Diastolic Thickness 1.3 cm 0.6 - 1.0 / 0.6 - 0.9 cm IVS Systolic Thickness 1.4 cm LVPW Diastolic Thickness 1.4 cm 0.6 - 1.0 / 0.6 - 0.9 cm LVPW Systolic Thickness 2.0 cm LVOT Diameter 2.0 cm LV Ejection Fraction 2D Teich 59.0 % LV Ejection Fraction MOD 4C 65.8 % LV Ejection Fraction MOD 2C 52.9 % LV Ejection Fraction 2C AL 54.9 % LA Diameter 4.0 cm RA Systolic Volume 4C AL 35.6 ml RA Systolic Volume 4C MOD 35.7 ml LA Sys Volume AL 50.8 cm cubed LA Sys Volume Index AL 34.2 cm cubed/m squared Aorta at Sinotubular Diameter 2.4 cm IVC Diameter 1.7 cm M-MODE LA Ao Ratio MM 1.7 AV Cusp Separation MM 2.2 cm DOPPLER AV Peak Velocity 110.0 cm/s LVOT Peak Velocity 70.0 cm/s AV Area Cont Eq vti 2.0 cm squared AV Area Cont Eq pk 2.1 cm squared MV Peak Velocity 110.0 cm/s MV Area PHT 7.1 cm squared Mitral E to A Ratio 341.0 TV Peak Velocity 209.7 cm/s TR Peak Velocity 292.0 cm/s TR Peak Gradient 34.1 mmHg TR Mean Velocity 225.0 cm/s TR Mean Gradient 22.5 mmHg TR Velocity Time Integral 79.4 cm PV Peak Velocity 82.0 cm/s RV Ejection Time 0.3 s FINDINGS Left Ventricle Normal left ventricular size and systolic function, EF 65%.No regional wall motion abnormalities. Mild left ventricular hypertrophy. Right Ventricle The right ventricle is normal in size and function. Right Atrium The right atrium is normal in size. Left Atrium Mildly increased left atrial size. Mitral Valve Mild mitral valve regurgitation. Thickened mitral valve. Aortic Valve No gross abnormalities no Tricuspid Valve Trace tricuspid valve regurgitation. Pulmonic Valve Pulmonic valve not well visualized. Pericardium No pericardial effusion. Aorta Normal aortic annulus size. IVC Inferior vena cava not visualized. CONCLUSIONS Normal left ventricular size and systolic function, EF 65%.No regional wall motion abnormalities. [id number] mild left ventricular hypertrophy. Mild mitral valve regurgitation. Thickened mitral valve. Trace tricuspid valve regurgitation. There is no pericardial effusion. There are no intracardiac masses. No similar previous studies are available for comparison Dr Priscilla Chaidez MD FACC (Electronically Signed) Final Date: 14 August 2024 16:59 S
[2024-08-14] MEDS: sodium chloride 0.9% 1,000 ML 75 ML IV (12:21)
--- NOTE | 2024-08-14 13:55 | P.PN_ITS ---
Subjective 2 Subjective: seen today pt still in afib rates 100-120 on cardizem 5 at this time Discussed with her regarding anticoagulation today. She says she will think about it. She is not interested in starting Eliquis at this time. No longer having nausea vomiting or chest pain. Vitals/I&O/Wt Last Vital Signs Temp 97.7 F 08/14/24 11:40 Pulse 115 H 08/14/24 11:40 Resp 22 H 08/14/24 11:40 BP 140/94 08/14/24 11:40 Pulse Ox 92 08/14/24 11:40 O2 Del Method Room Air 08/14/24 11:40 08/13/24 08/14/24 08/14/24 22:59 06:59 14:59 Intake Total 1901.583 / 2292.750 41 / 2333.750 1752.583 / 1752.583 Balance 1901.583 / 2292.750 41 / 2333.750 1752.583 / 1752.583 Weight last 48 hrs Weight 126.008 kg Weight 126.008 kg Weight 108.862 kg Physical Exam 2 Narrative: General: Alert oriented x3, patient seen laying in bed appearing comfortable. HEENT: Normocephalic, atraumatic, EOMI, breathing room air Cardio: Irregular irregular, normal S1-S2, Respiratory: Clear to auscultation bilaterally no wheezes no rhonchi. GI: Abdomen soft, nontender, nondistended, bowel sounds + Extremities: Pulses 2+, no edema, no cyanosis Data 08/14/24 04:02 08/14/24 04:02 A&P Assessment and plan (1) Hypertension: (2) Atrial fibrillation: (3) Asthma: Plan #New onset atrial fibrillation with RVR #Hypertension #Asthma #Chest pain #Hypertensive urgency ? Blood pressure 179/149 at bedside when patient seen. Was given hydralazine 5 IV x 1 ? Patient currently on Cardizem drip at 15. Will continue ? Placed on Lopressor 25 twice daily ? Troponins 24, 30.6, 6-hour pending at this time ? BNP 202 ? TSH 1.59 ? CTA ruled out PE and aortic dissection. ? [id number]: 2: Hypertension, female. Will benefit from anticoagulation. Will discuss with patient ? Placed on heparin subcu twice daily ?EKG does not show any acute ischemic changes at this time. Does show A-fib. ? Check echocardiogram ? Will consider stress testing Thursday. ? DuoNeb every 6 hours as needed ? Clear liquid diet and advance as tolerated ? GI cocktail x 1 Full code DVT prophylaxis: Heparin subcu twice daily 08/14/2024 -Seen today. Blood pressure still elevated 140s over 90s, patient still in A- fib heart rate uncontrolled. ? Will increase Lopressor to 50 twice daily, will titrate Cardizem drip upwards. ? If patient remains uncontrolled by the afternoon we will stop both medications above and placed on amiodarone drip. ? Patient might require DAYNA and cardioversion thereafter ? Once rate controlled or has converted patient will need a stress test prior to discharge. ? Curbside discussed with cardiology. If pt remains uncontrolled, please consult cardiology in AM advance diet to cardiac at this time npo at midnight except meds Attestations 2 Medical Necessity Statement*: Afib rvr, uncontrolled rate Diagnoses Hypertension I10 Atrial fibrillation I48.91 Asthma J45.909
[2024-08-14] MEDS: dilTIAZem 60 mg Tablet PO ×2 (16:54→23:03)
[2024-08-14] MEDS: metoprolol tartrate 50 mg Tablet PO (21:35)
[2024-08-15] VITALS (10 sets, daily range): BP systolic 123–150; BP diastolic 76–100; PULSE 100–117; RESP 15–24; TEMP 36.5–37.2; O2SAT 94–98
[2024-08-15 03:15] LABS: Basophils # 0.1 10^3/uL (0.0-0.1); Basophils % 0.3 %; Eosinophils # 0.1 10^3/uL (0.0-0.8); Eosinophils % 0.4 %; Hematocrit 41.6 % (36-47); Lymphocytes # 4.5 10^3/uL (0.8-4.8); Mean Corpuscular HGB Conc 31.7 g/dL (30-55); Mean Corpuscular Volume 88.1 fl (85-98); Mean Platelet Volume 9.2 fL (7.4-10.4); Monocytes # 1.1 10^3/uL (0.2-0.9); Monocytes % 7.3 %; Neutrophils # 8.84 10^3/uL (1.8-7.7); Neutrophils % 60.7 %; Nucleated Red Blood Cells % 0 %; Platelet Count 379 10^3/cmm (157-399); Red Blood Count 4.72 10^6/uL (3.85-5.65); Red Cell Distribution Width 13.9 % (12.1-15.1); White Blood Count 14.59 10^3/uL (3.29-11.43)
[2024-08-15 03:40] LABS: Anion Gap 12.1 (5-19); Blood Urea Nitrogen 8 mg/dL (8-23); Calcium 8.3 mg/dL (8.5-10.5); Carbon Dioxide 26 mmol/L (22-29); Chloride 103 mmol/L (98-107); Creatinine Clr Calc Pharmacy 135.3439; Glucose 101 mg/dL (65-115); Magnesium 1.8 mg/dL (1.7-2.3); Osmolality Calculated 282 mOsm/kg (285-295); Potassium 4.1 mmol/L (3.5-5.1); Sodium 137 mmol/L (136-145)
[2024-08-15] MEDS: dilTIAZem 60 mg Tablet PO ×3 (04:34→23:00)
[2024-08-15] MEDS: metoprolol tartrate 50 mg Tablet PO (08:11)
--- NOTE | 2024-08-15 09:16 | ECG_ITS ---
[facility] Date: 2024-08[facility]15 Pat Name: Dunia Harding Department: Room: 106 Gender: Female Operations Support Coordinator: : 1965 Requested By: Richard Stout Order Number: [id number] Joanne MD: Priscilla Chaidez M.D. Measurements Intervals [place] Rate: 96 P: 0 MS: 0 QRS: 19 QRSD: 97 T: 7 QT: 352 QTc: 445 Interpretive Statements ATRIAL FIBRILLATION LOW QRS VOLTAGE IN PRECORDIAL LEADS [QRS DEFLECTION < 1.0 mV IN CHEST LEADS] INCOMPLETE RIGHT BUNDLE BRANCH BLOCK [90+ ms QRS DURATION, TERMINAL R IN V1/V2, 40+ ms S IN I/aVL/V4/V5/V6] ABNORMAL RHYTHM ECG Compared to ECG 08/13/2024 14:06:13 Low QRS voltage now present Electronically Signed On 08-16-2024 00:53:51 CDT by Priscilla Chaidez M.D. [email or web address]
[2024-08-15 09:30] LABS: Estmated Average Glucose 114; Hemoglobin A1C 5.6 % (4.0-6.0)
[2024-08-15 09:41] LABS: Iron 45 ug/dL (37-145); Total Iron Binding Capacity 249 mcg/dl; Unsaturated Iron Binding 204 ug/dL (112-347)
[2024-08-15 09:57] LABS: Vitamin B12 234 pg/mL (232-1245)
[2024-08-15] MEDS: heparin 5,000 unit/mL INJ 1 mL 5000 UNIT SUBCUT (09:59)
[2024-08-15] MEDS: amiodarone 50 mg/mL SDV 3 mL 150 MG IVP (09:59)
--- NOTE | 2024-08-15 13:37 | P.PN_ITS ---
Subjective 2 Subjective: Hospital course, labs appreciated. Morning patient seen sitting up in bed. Heart rate usually running in mid to high 90s at rest increasing to 120s on ambulation. Patient states she is feeling better. Denies any nausea or chest pain any further. Vitals/I&O/Wt Last Vital Signs Temp 97.9 F 08/15/24 12:00 Pulse 104 H 08/15/24 12:00 Resp 20 H 08/15/24 12:00 BP 144/85 08/15/24 12:00 Pulse Ox 95 08/15/24 12:00 O2 Del Method Room Air 08/15/24 12:00 08/14/24 08/15/24 08/15/24 22:59 06:59 14:59 Intake Total 307.417 / 3060.000 300 / 300 Balance 307.417 / 3060.000 300 / 300 Weight last 48 hrs Weight 131.4 kg Weight 126.008 kg Physical Exam 2 Narrative: General: Alert oriented x3, patient seen laying in bed appearing comfortable. HEENT: Normocephalic, atraumatic, EOMI, breathing room air Cardio: Irregular irregular, normal S1-S2, Respiratory: Clear to auscultation bilaterally no wheezes no rhonchi. GI: Abdomen soft, nontender, nondistended, bowel sounds + Extremities: Pulses 2+, no edema, no cyanosis Data 08/15/24 02:39 08/15/24 02:39 A&P Assessment and plan (1) Atrial fibrillation: New diagnosis. Heart rate has remained elevated on Cardizem drip, metoprolol 50 mg twice daily along with Cardizem 60 mg every 6 hour. For now stop Cardizem drip, hold off on Cardizem and metoprolol. Switch over to IV amiodarone 150 mg stat followed by amiodarone drip. Will restart oral Cardizem gradually as per heart rates. Discussed in detail with patient regarding anticoagulation for stroke prevention. Medhat Vascor around 2. Patient is agreeable to start Eliquis 5 mg twice daily. Appreciate echocardiogram showing an EF of 65% with mild LVH. (2) Hypertension: Goal blood pressure less than 140/90 mmHg. Takes lisinopril 5 mg daily at home. Might uptitrate Cardizem for now. Hold off on lisinopril. Uptitrate as for goal blood pressures. (3) Asthma: Not in exacerbation for now. Levalbuterol as needed. Plan Leukocytosis: Unknown cause. Patient did have leukocytosis back in 2019 as well. No sign of infection for now. Check urinalysis. Hold off antibiotics. Eliquis for DVT prophylaxis Cardiac diet Famotidine for PUD prophylaxis Attestations 2 Medical Necessity Statement*: Requires further hospitalization for management of persistent A-fib with RVR Diagnoses Atrial fibrillation I48.91 Hypertension I10 Asthma J45.909
[2024-08-15 14:10] LABS: Bilirubin Urine Negative (Negative); Blood Urine Negative (Negative); Glucose Urine UA Negative (Normal); Ketones Urine Negative (Negative); Leukocyte Esterase Urine Trace (Negative); Nitrate Urine Negative (Negative); Protein Urine Negative (Negative); Specific Gravity, Urine 1.005 (1.005-1.030); Urine Appearance Clear (CLEAR); Urine Color Yellow (Yellow); Urobilinogen Urine 0.2 mg/dL (Negative)
[2024-08-15 14:31] LABS: Add Urine Microscopic? YES; Bacteria Urine TRACE /hpf; RBC Urine 0-4 /hpf (0-2); Squamous Epithelial Cell Urine 0-4 /hpf (0-5); WBC Urine 0-4 /hpf (0-5)
[2024-08-15] MEDS: famotidine 20 mg Tablet PO (17:25)
[2024-08-15] MEDS: apixaban 5 mg Tablet PO (21:24)
[2024-08-16] VITALS (7 sets, daily range): BP systolic 126–137; BP diastolic 57–83; PULSE 101–119; RESP 15–23; TEMP 36.4–36.9; O2SAT 24–98
[2024-08-16 04:04] LABS: Basophils # 0.1 10^3/uL (0.0-0.1); Basophils % 0.5 %; Eosinophils # 0.1 10^3/uL (0.0-0.8); Eosinophils % 0.6 %; Hematocrit 41.7 % (36-47); Lymphocytes # 4.2 10^3/uL (0.8-4.8); Mean Corpuscular HGB Conc 32.9 g/dL (30-55); Mean Corpuscular Hemoglobin 28.5 pg (27-33); Mean Corpuscular Volume 86.9 fl (85-98); Mean Platelet Volume 9.1 fL (7.4-10.4); Monocytes # 1.2 10^3/uL (0.2-0.9); Monocytes % 7.6 %; Neutrophils # 9.95 10^3/uL (1.8-7.7); Nucleated Red Blood Cells % 0 %; Platelet Count 409 10^3/cmm (157-399); Red Cell Distribution Width 13.7 % (12.1-15.1); White Blood Count 15.58 10^3/uL (3.29-11.43)
[2024-08-16 04:32] LABS: Alanine Aminotransferase 11 U/L (0-33); Albumin Level 3.7 g/dL (3.5-5.2); Alkaline Phosphatase 75 U/L (35-105); Anion Gap 18.5 (5-19); Aspartate Amino Transferase 11 U/L (0-32); Blood Urea Nitrogen 7 mg/dL (8-23); Calcium 8.5 mg/dL (8.5-10.5); Carbon Dioxide 22 mmol/L (22-29); Chloride 101 mmol/L (98-107); Creatinine Clr Calc Pharmacy 104.1486; Globulin 3.2 g/dL (1.3-4.6); Glomerular Filtration Rate 73.2 mL/min (90-130); Glucose 108 mg/dL (65-115); Osmolality Calculated 285 mOsm/kg (285-295); Potassium 3.5 mmol/L (3.5-5.1); Sodium 138 mmol/L (136-145); Total Protein 6.9 g/dL (6.6-8.7)
[2024-08-16 04:36] LABS: Magnesium 1.8 mg/dL (1.7-2.3)
[2024-08-16 04:49] LABS: Folate Level 6.2 ng/mL (4.8-37.3)
[2024-08-16] MEDS: dilTIAZem 60 mg Tablet PO (05:17)
[2024-08-16] MEDS: apixaban 5 mg Tablet PO (08:09)
[2024-08-16] MEDS: famotidine 20 mg Tablet PO (08:09)
--- NOTE | 2024-08-16 08:16 | PC.NURSE ---
Provider ordered cardizem dose change, 90mg Q6hr from 60mg Q6hr. First dose now.
[2024-08-16] MEDS: dilTIAZem 60 mg Tablet 90 MG PO (08:24)
[2024-08-16] MEDS: amiodarone 200 mg Tablet PO (08:53)
--- NOTE | 2024-08-16 11:27 | PM.DCS ---
Discharge Providers Date of Admission: 08/13/24 09:58 Date of Discharge: August 16, 2024 Attending Provider at Admission: Latricia Horton MD Attending Provider at Discharge: Richard Stout MD Consults: Cardiology: Dr. Bullard Primary Care Provider: Juan Pickett MD Diagnoses at Discharge Discharge Diagnosis (1) Atrial fibrillation: Status: Acute (2) Hypertension: Status: Acute (3) Asthma: Status: Acute Reason for Visit Reason for Visit: SOB, CP Brief History: History as per HPI: Dunia Harding is a 59 year old female with past medical history of hypertension presented to the hospital today with complaint of chest pain which she mainly describes as belching and being uncomfortable. 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 Ate a ham sandwich last night. No known cardiac issues in the past. Has never had a stress test. Dad did have a history of A-fib. Takes lisinopril for hypertension. Does have a history of asthma and states last couple of weeks has been feeling short of breath. This morning has been more short of breath. Denies any other complaints at this time. Family at bedside. In ER she was given Cardizem push and started on a Cardizem drip. Hospital Course Hospital Course Patient was admitted to the hospital further evaluation and management of new onset A-fib with RVR. Her heart rate was difficult to control and multiple regimen were tried. Eventually she was transitioned over to amiodarone drip after which her heart rate improved though she remained in A-fib with RVR. After discussion with the patient she was started on Eliquis 5 mg twice daily for stroke prevention. As her heart rate continued to remain slightly elevated with persistent A-fib, cardiology was consulted with possible cardioversion. She has been recommended to follow-up as an outpatient with cardiology team within next 4 weeks while being on anticoagulation with Eliquis 5 mg twice daily to set up cardioversion as an outpatient. She is also advised to follow-up with a primary care provider within these 3 to 4 weeks to schedule a sleep study for treatment of undiagnosed sleep apnea. Physical Exam Narrative: General: Alert oriented x3, patient seen laying in bed appearing comfortable. HEENT: Normocephalic, atraumatic, EOMI, breathing room air Cardio: Irregular irregular, normal S1-S2, Respiratory: Clear to auscultation bilaterally no wheezes no rhonchi. GI: Abdomen soft, nontender, nondistended, bowel sounds + Extremities: Pulses 2+, no edema, no cyanosis Discharge Data Studies Completed and Pending Completed Studies During Hospitalization Category Date Time Status CTA thoracic [CT angio chest [id number]] Stat Cat Scan 08/13/24 07:13 Completed XR chest 1V portable [id number] Stat Exams 08/13/24 06:52 Completed CV. echo complete* [id number] Routine Ultrasound 08/14/24 09:59 Completed Pending at discharge Category Date Time Status MAG [Magnesium] AM LABS Lab 08/17/24 04:00 Ordered MAG [Magnesium] AM LABS Lab 08/18/24 04:00 Ordered Radiology Impressions Chest X-Ray 08/13/24 06:52 IMPRESSION: No acute findings. Chest CTA 08/13/24 07:13 IMPRESSION: 1. Mild cardiomegaly. 2. There is a 3 mm nodule in the right lower lobe along the oblique fissure.For patients at low risk (minimal or absent history of smoking and of other known risk factors), no routine follow-up is indicated. For patients at high risk (history of smoking or of other known risk factors), consider optional CT Chest at 12 months. (Reference: Kika) COMMENTS: Consistent with the [employer]'s Incidental Findings Committee white paper (J Am Payton Radiol 2015): In patients aged 35 years and older with an incidental thyroid nodule equal to or greater than 1.[address], MRI or extrathyroidal US, further evaluation with dedicated thyroid US is recommended for patients with normal life expectancy and without comorbidities. For smaller nodules without suspicious features, no further evaluation or follow up is recommended. REFERENCES: Kika Escalante, et al. Guidelines for Management of Incidental Pulmonary Nodules Detected on CT Images: From the Fleischner Society 2017. Radiology. 2017;284(1):228-243. Echocardiogram: CONCLUSIONS Normal left ventricular size and systolic function, EF 65%.No regional wall motion abnormalities. Mild left ventricular hypertrophy. Mild mitral valve regurgitation. Thickened mitral valve. Trace tricuspid valve regurgitation. There is no pericardial effusion. There are no intracardiac masses. No similar previous studies are available for comparison Dr Priscilla Chaidez MD [facility] (Electronically Signed) Final Date: 14 August 2024 Laboratory Results WBC 15.58 10^3/uL (3.29-11.43) H 08/16/24 03: RBC 4.80 10^6/uL (3.85-5.65) 08/16/24 03: Hgb 13.70 g/dL (11.27-16.99) 08/16/24 03: Hct 41.7 % (36-47) 08/16/24 03: MCV 86.9 fl (85-98) 08/16/24 03: MCH 28.5 pg (27-33) 08/16/24 03: MCHC 32.9 g/dL (30-55) 08/16/24 03: RDW 13.7 % (12.1-15.1) 08/16/24 03: Plt Count 409 10^3/cmm (157-399) H 08/16/24 03: MPV 9.1 fL (7.4-10.4) 08/16/24 03: Neut % (Auto) 64.0 % 08/16/24 03: Lymph % (Auto) 27.0 % 08/16/24 03:29 Bates % (Auto) 7.6 % 08/16/24 03:29 Eos % (Auto) 0.6 % 08/16/24 03: Baso % (Auto) 0.5 % 08/16/24 03: Neut # (Auto) 9.95 10^3/uL (1.8-7.7) H 08/16/24 03: Lymph # (Auto) 4.2 10^3/uL (0.8-4.8) 08/16/24 03: Bates # (Auto) 1.2 10^3/uL (0.2-0.9) H 08/16/24 03: Eos # (Auto) 0.1 10^3/uL (0.0-0.8) 08/16/24 03: Baso # (Auto) 0.1 10^3/uL (0.0-0.1) 08/16/24 03: Nucleated RBC % (auto) 0 % 08/16/24 03: Nucleated RBCs # 0.0 /100WBC 08/16/24 03:29 Sodium 138 mmol/L (136-145) 10/29/24 03:29 Potassium 3.5 mmol/L (3.5-5.1) 08/16/24 03:29 Chloride 101 mmol/L (98-107) 08/16/24 03:29 Carbon Dioxide 22 mmol/L (22-29) 08/16/24 03:29 Anion Gap 18.5 (5-19) 08/16/24 03:29 BUN 7 mg/dL (8-23) L 08/16/24 03:29 Creatinine 0.8 mg/dL (0.5-0.9) 08/16/24 03:29 GFR Calculation 73.2 mL/min (90-130) L 08/16/24 03:29 Glucose 108 mg/dL (65-115) 08/16/24 03:29 Estimat Average Glucose 114 08/15/24 02:39 Hemoglobin A1c 5.6 % (4.0-6.0) 08/15/24 02:39 Calculated Osmolality 285 mOsm/kg (285-295) 08/16/24 03:29 Calcium 8.5 mg/dL (8.5-10.5) 08/16/24 03:29 Phosphorus 3.1 mg/dL (2.5-4.5) 08/14/24 04:02 Magnesium 1.8 mg/dL (1.7-2.3) 08/16/24 03:29 Iron 45 ug/dL (37-145) 08/15/24 02:39 TIBC 249 mcg/dl 08/15/24 02:39 % Saturation 18.0 % (20-50) L 08/15/24 02:39 Unsat Iron Binding 204 ug/dL (112-347) 08/15/24 02:39 Total Bilirubin 1.0 mg/dL (0.15-1.2) 08/16/24 03:29 AST 11 U/L (0-32) 08/16/24 03:29 ALT 11 U/L (0-33) 08/16/24 03:29 Alkaline Phosphatase 75 U/L (35-105) 08/16/24 03:29 Troponin T Baseline 24 ng/L (0-10) H 08/13/24 07:03 Troponin T 120 Minute 30.46 ng/L (0-10) H 08/13/24 09:26 Delta Troponin T 6.46 ABS# (0-10) 08/13/24 09:26 Troponin T Hi Sens 6Hr 25.28 ng/L (0-10) H 08/13/24 17:40 Troponin T Hi Sens 6Hr Delta 1.28 ng/L (0-12) 08/13/24 17:40 NT-Pro-B Natriuret Pep 202 pg/mL (0-125) H 08/13/24 07:03 Total Protein 6.9 g/dL (6.6-8.7) 08/16/24 03:29 Albumin 3.7 g/dL (3.5-5.2) 08/16/24 03:29 Globulin 3.2 g/dL (1.3-4.6) 08/16/24 03:29 Vitamin B12 234 pg/mL (232-1245) 08/15/24 02:39 Folate 6.2 ng/mL (4.8-37.3) 08/16/24 03:29 Procalcitonin 0.05 ng/mL (0-0.5) 08/13/24 07:03 TSH 1.59 uIU/mL (0.27-4.20) 08/13/24 07:03 TSH Cancelled 08/13/24 07:03 Urine Color Yellow (Yellow) 08/15/24 13:45 Urine Appearance Clear (CLEAR) 08/15/24 13:45 Urine pH 6.0 (5-7) 08/15/24 13:45 Ur Specific Allgood 1.005 (1.005-1.030) 08/15/24 13:45 Urine Protein Negative (Negative) 08/15/24 13:45 Urine Glucose (UA) Negative (Normal) 08/15/24 13:45 Urine Ketones Negative (Negative) 08/15/24 13:45 Urine Blood Negative (Negative) 08/15/24 13:45 Urine Nitrate Negative (Negative) 08/15/24 13:45 Urine Bilirubin Negative (Negative) 08/15/24 13:45 Urine Urobilinogen 0.2 mg/dL (Negative) 08/15/24 13:45 Ur Leukocyte Esterase Trace (Negative) A 08/15/24 13:45 Urine RBC 0-4 /hpf (0-2) H 08/15/24 13:45 Urine WBC 0-4 /hpf (0-5) H 08/15/24 13:45 Ur Squamous Epith Cells 0-4 /hpf (0-5) H 08/15/24 13:45 Amorphous Sediment Not Reportable 08/15/24 13:45 Urine Bacteria Trace /hpf (NONE) 08/15/24 13:45 Vitals Last Vital Signs Temp 97.8 F 08/16/24 11:20 Pulse 108 H 08/16/24 11:20 Resp 23 H 08/16/24 11:20 BP 126/66 08/16/24 11:20 Pulse Ox 98 08/16/24 11:20 O2 Del Method Room Air 08/16/24 11:20 Discharge Plan Discharge Patient Disposition: Home Condition: Stable Prescriptions: New amiodarone [Pacerone] 200 mg Tablet 200 mg PO DAILY Qty: 60 0RF Rx Instructions: Twice daily for next 7 days followed by once daily diltiazem HCl [Cardizem CD] 360 mg capsule,extended release 24hr 360 mg PO DAILY Qty: 30 0RF Eliquis 5 mg Tablet 5 mg PO BID@0900,2100 Qty: 60 0RF diltiazem HCl [Cardizem] 30 mg tablet 30 mg PO Q8H PRN (Reason: HR persistent over 110 bpm) Qty: 14 0RF Continued Arnuity Ellipta 100 mcg/actuation blister with device 1 inh INHALATION DAILY cetirizine 10 mg Tablet 10 mg PO DAILY lisinopril 5 mg tablet 5 mg PO DAILY albuterol sulfate 90 mcg/actuation HFA aerosol inhaler 1 puff INHALATION Q4H PRN (Reason: Wheezing) Discharge Orders: Discharge Order (Routine); Ordered 08/16/24 Ordered By: Richard Stout Other Ambulatory Orders: Sleep Study/Titration (Routine) Timeframe: 1 Week Facility: [facility] - Location: [facility] Ordered By: Richard Stout Referrals: Mami Bhandari FNP [Nurse Practitioner] - 09/19/24 1:00 pm Juan Pickett MD [Primary Care Provider] - 08/18/24 10:00 am Discharge Diet: Cardiac Discharge Activity: Resume usual activity and Increase activity as tolerated Patient Instructions: Opioid Safety Activity Restrictions/Additional Instructions: Take amiodarone 200 mg twice daily followed by once daily. Take Cardizem 360 mg daily. If the heart rate remains more than 110 bpm you can take 30 mg once Cardizem as needed. Take Eliquis as a blood thinner 5 mg twice daily. You should have a sleep study at the earliest. Follow-up with cardiology team within next 3 weeks to schedule for cardioversion. Discharge Attestations Time Spent in Discharge Care*: greater than 30 min Specific Discharge Activities: educating patient, educating and/or supporting family/caregiver, discussing with pcp/other providers, discussing with case fitter/social workers/dc planners, documenting/other paperwork and evaluating patient/reviewing data Status at Discharge: Cognitive status at discharge: cognitively intact, Behavioral status at discharge: cooperative, Functional status at discharge: independent ambulation, Overall status at discharge: patient is progressing back to baseline Quality Metrics Clinical Quality Measures [ No reported AMI, CVA or VTE this stay] Coding Level of Care Code 42344 Total time (in minutes) for Discharge: 60 Diagnoses Atrial fibrillation I48.91 Hypertension I10 Asthma J45.909
--- NOTE | 2024-08-16 12:00 | P.CONIM_ITS ---
Providers/Reason For Consult 2 Consulting Physician/Specialty*: Cardiology Reason for Consult*: Atrial fibrillation Requesting Physician: Dr. Stout Attending Physician: Richard Stout MD Primary Care Provider: Juan Pickett MD History of Present Illness History of Present Illness Dunia Harding is a 59 year old female who was admitted with atrial fibrillation with rapid ventricular rate. Patient does have a history of hypertension and asthma. Clinically there is also high suspicious of sleep apnea. Since admission patient was managed with amiodarone and diltiazem which has controlled the rate of atrial fibrillation. Patient remains in atrial fibrillation with controlled rate. Currently she is asymptomatic and laying comfortably on her bed. No history of angina or heart failure symptoms. Her blood pressure is reasonably well- controlled. Although not convincing however there appears to be some vague history of rapid heartbeat in the recent past for which she did not seek any medical attention. These episodes could well be short runs of atrial fibrillation. I reviewed her echo which is normal for LV systolic function. Mild left ventricular hypertrophy. She has good exercise tolerance. Review of Systems 2 Narrative: Detailed 10 point systemic review unremarkable except for as mentioned above in the history of present illness. Medications/Allergies Home Medications Medication Instructions Recorded Confirmed Last Taken Type albuterol sulfate 90 mcg/actuation 1 puff inhalation Q4H PRN Wheezing 05/04/24 08/13/24 Unknown History aerosol inhaler cetirizine 10 mg tablet 10 mg PO DAILY 05/04/24 08/13/24 08/11/24 History lisinopril 5 mg tablet 5 mg PO DAILY 05/04/24 08/13/24 05/04/24 History fluticasone furoate 100 1 inh inhalation DAILY 08/13/24 08/13/24 Unknown History mcg/actuation blister powder for inhalation (Arnuity Ellipta) Allergies Allergy/AdvReac Type Severity Reaction Status Date / Time azithromycin [From Zithromax] Allergy ALGY-Swell Verified 05/04/24 12:28 Lip/Tongue/Throat ciprofloxacin [From Cipro] Allergy ALGY-Hives Verified 05/04/24 12:27 Egg Derived Allergy Unknown Verified 05/04/24 12:28 peanut Allergy Unknown Verified 05/04/24 12:28 Current Medications Generic Name Dose Route Start Last Admin Trade Name Freq PRN Reason Stop Dose Admin Amiodarone HCl 200 mg 08/16/24 09:00 08/16/24 08:53 Amiodarone 200 Mg Tablet PO 200 mg BID SARAH Administration Apixaban 5 mg 08/15/24 21:00 08/16/24 08:09 Apixaban 5 Mg Tablet PO 5 mg BID@0900,2100 SARAH Administration Diltiazem HCl 90 mg 08/16/24 08:15 08/16/24 08:24 Diltiazem 60 Mg Tablet PO 90 mg Q6H SARAH Administration Famotidine 20 mg 08/15/24 18:00 08/16/24 08:09 Famotidine 20 Mg Tablet PO 20 mg BID SARAH Administration Amiodarone HCl/Dextrose 360 mg in 200 mls @ 0 mls/hr 08/15/24 08:43 08/16/24 03:41 Nexterone IV 0.5 mg/min .Q0M SARAH 16.67 mls/hr Administration Protocol Per Protocol Ondansetron HCl 4 mg 08/13/24 09:56 08/13/24 12:04 Ondansetron 2 Mg/Ml Sdv 2 Ml IVP 4 mg Q8H PRN Administration vomiting, or N/V if npo PFSH Acute 2 PFSH: Medical History MARY (obstructive sleep apnea) Asthma Hypertension Vitals/I&O/Wt Last Vital Signs Temp 97.8 F 08/16/24 11:20 Pulse 108 H 08/16/24 11:20 Resp 23 H 08/16/24 11:20 BP 126/66 08/16/24 11:20 Pulse Ox 98 08/16/24 11:20 O2 Del Method Room Air 08/16/24 11:20 08/15/24 08/16/24 08/16/24 22:59 06:59 14:59 Intake Total 256.647 / 019.591 8509.261 / 1948.908 360 / 360 Balance 256.647 / 358.475 4931.261 / 1948.908 360 / 360 Weight last 48 hrs Weight 290 lb 2.053 oz Weight 289 lb 10.998 oz Physical Exam 2 Narrative: Laying comfortably. Not in any respiratory distress. Const: GENERAL APPEARANCE: cooperative, comfortable and well kempt HENMT: OTHER: Normal. Eye: OTHER: Unremarkable Neck/C-Spine: OTHER: Normal Resp: OTHER: Good air entry bilaterally. No added sounds. Cardio: OTHER: Heart rate irregularly irregular, atrial fibrillation. Normal first and second heart sounds. No pedal edema. GI: OTHER: Abdomen obese however soft nontender. Bowel sounds audible. Extremity: OTHER: Normal. No pedal edema. Neuro: OTHER: Grossly intact. Psych: APPEARANCE: Yes well kempt Skin: OTHER: Warm and dry. Data 08/16/24 03:29 08/16/24 03:29 A&P Assessment and plan (1) Atrial fibrillation: (2) Hypertension: (3) MARY (obstructive sleep apnea): Plan 59-year-old female patient with a history of hypertension and likely obstructive sleep apnea presented with atrial fibrillation with rapid ventricular rate. Clinically no heart failure. There is no clinical suspicious of angina either. Blood pressure reasonable control with the current medication. Patient successfully treated for rate control atrial fibrillation with amnio and Cardizem. Currently she is asymptomatic with rate rate controlled atrial fibrillation. No angina No heart failure Recommendation: Considering her overall medical history I recommend rate control strategy for now with oral anticoagulation for which she is on Eliquis. I would consider elective cardioversion in 3 to 4 weeks while being on anticoagulation. Coding Level of Care Code 30682 Diagnoses Atrial fibrillation I48.91 Hypertension I10 MARY (obstructive sleep apnea) G47.33 Time Spent (min) 25
== END 2024-08-16 14:04 | disposition home or self-care (01) | DRG 310 ==
LOC: ER 10:25 → CSU 10:35
PROVIDERS: Admitting Provider Internal Medicine; Emergency Provider Family Medicine; PCP Family Medicine; Visit Provider Student in an Organized Health Care Education/Training Program
DX: I48.19 Other persistent atrial fibrillation (principal); I16.0 Hypertensive urgency; I10 Essential (primary) hypertension; J45.909 Unspecified asthma, uncomplicated; D72.829 Elevated white blood cell count, unspecified
CPT/HCPCS: 36415; 71045; 71275; 80048; 80053; 81001; 82607; 82746; 83036; 83540; 83550; 83735; 83880; 84100; 84145; 84443; 84484; 85025; 93005; 93306; 96365; 96366; 96372; 96375; 96376; 99291; A4222; A9270; J0282; J0283; J0360; J1644; J2270; J2405; J3490; J7030

== ENCOUNTER 2024-08-27 15:23 | Emergency (ER) | payer OTHER, SELFPAY ==
[2024-08-27 15:49] VITALS: BP 140/84; PULSE 68; RESP 18; TEMP 36.7; O2SAT 98; BMI 39.1
--- NOTE | 2024-08-27 16:25 | ED_ITS ---
HPI - Female Genitourinary 2 General: Chief complaint: Urogenital-Female Stated complaint: blood in urine- on blood thinners Time Seen by Provider: 08/27/24 16:20 History of Present Illness: 59-year-old female presents to the [facility] ency room with complaints of hematuria. Patient was recently started on Eliquis for A-fib. She has not had any dysuria urgency or frequency. She has not had any difficulty with voiding. No fever sweats or chills no other signs of bleeding. No hematemesis cough cramps medic easier melena. She has not had any rapid heart rate or chest pain. Associated symptoms: Deny abdominal pain Related Data Home Medications Medication Instructions Recorded Confirmed albuterol sulfate 90 mcg/actuation 1 puff inhalation Q4H PRN Wheezing 05/04/24 08/13/24 aerosol inhaler cetirizine 10 mg tablet 10 mg PO DAILY 05/04/24 08/13/24 lisinopril 5 mg tablet 5 mg PO DAILY 05/04/24 08/13/24 fluticasone furoate 100 1 inh inhalation DAILY 08/13/24 08/13/24 mcg/actuation blister powder for inhalation (Arnuity Ellipta) Previous Rx's Medication Instructions Recorded amiodarone 200 mg tablet (Pacerone) 200 mg PO DAILY #60 tabs 08/16/24 apixaban 5 mg tablet (Eliquis) 5 mg PO BID@0900,2100 #60 tabs 08/16/24 diltiazem HCl 30 mg tablet 30 mg PO Q8H PRN HR persistent 08/16/24 (Cardizem) over 110 bpm #14 tabs diltiazem HCl 360 mg 360 mg PO DAILY #30 caps 08/16/24 capsule,extended release 24 hr (Cardizem CD) cefdinir 300 mg capsule 300 mg PO BID 7 days #14 caps 08/27/24 Allergies Allergy/AdvReac Type Severity Reaction Status Date / Time azithromycin [From Zithromax] Allergy ALGY-Swell Verified 08/27/24 15:54 Lip/Tongue/Throat ciprofloxacin [From Cipro] Allergy ALGY-Hives Verified 08/27/24 15:54 Egg Derived Allergy Unknown Verified 08/27/24 15:54 peanut Allergy Unknown Verified 08/27/24 15:54 Review of Systems 2 Const: Denies: fever(s) or chills Card: Denies: chest pain Resp: Denies: dyspnea GI: Denies: abdominal pain : Reports: hematuria; Denies: dysuria, urinary frequency or urinary urgency Musc: Denies: neck pain or back pain Skin/Breast: Denies: rash PFSH ED 2 PFSH: Medical History MARY (obstructive sleep apnea) Asthma Hypertension Physical Exam 2 Const: GENERAL APPEARANCE: cooperative ORIENTATION/CONSCIOUSNESS: Yes awake, Yes oriented to person, Yes oriented to place and Yes oriented to time HENMT: COMMON NORMALS: normocephalic, atraumatic and hearing grossly normal bilaterally HEAD & SCALP: normocephalic and atraumatic Resp: COMMON NORMALS: normal respiratory effort, No retractions, No use of accessory muscles and clear to auscultation bilaterally AUSCULTATION: clear to auscultation bilaterally Cardio: COMMON NORMALS: regular rate, regular rhythm and No murmurs present (Cardio) RATE: regular rate RHYTHM: regular rhythm GI: COMMON NORMALS: Soft to palpation and No hepatosplenomegaly present A USCULTATION: Yes normoactive bowel sounds PALPATION: Yes Soft to palpation, No Tenderness to palpation present (GI), No Guarding due to palpation present (GI) and Yes No hepatosplenomegaly present : COMMON NORMALS: Yes no CVA tenderness BLADDER/KIDNEY EXAM: Yes no CVA tenderness Back/Pelvis: COMMON NORMALS: no CVA tenderness Extremity: COMMON NORMALS: normal to inspection, capillary refill normal, no clubbing, cyanosis or edema, no calf tenderness and no pedal edema Neuro: SENSORIUM/ORIENTATION: Yes oriented to person, Yes oriented to place and Yes oriented to time Skin: COMMON NORMALS: no rashes or lesions noted GENERAL SKIN EXAM: no rashes or lesions noted Course 2 Vital Signs: Vital signs: Vital Signs Temperature 98.0 F 08/27/24 15:49 Pulse Rate 64 08/27/24 18:01 Respiratory Rate 18 08/27/24 15:49 Blood Pressure 175/98 08/27/24 18:01 Pulse Oximetry 97 08/27/24 18:01 Oxygen Delivery Me thod Room Air 08/27/24 17:53 MDM - Female Medical Decision Making Patient has small amount of hematuria has a cystitis rate is well-controlled. Will treat her for a bladder infection of her follow-up with her primary care doctor will culture the urine. Hematuria is rather mild I do not believe at this point is requires her to stop her Eliquis if she noticed worsening tremor Medical Records I reviewed the patient's medical records. Lab Data I reviewed the patient's lab results. 08/27/24 16:17 08/27/24 16:17 Laboratory Results WBC 12.02 10^3/uL (3.29-11.43) H 08/27/24 16:17 RBC 4.87 10^6/uL (3.85-5.65) 08/27/24 16:17 Hgb 13.90 g/dL (11.27-16.99) 08/27/24 16:17 Hct 42.5 % (36-47) 08/27/24 16:17 MCV 87.3 fl (85-98) 08/27/24 16:17 MCH 28.5 pg (27-33) 08/27/24 16:17 MCHC 32.7 g/dL (30-55) 08/27/24 16:17 RDW 13.3 % (12.1-15.1) 08/27/24 16:17 Plt Count 559 10^3/cmm (157-399) H 08/27/24 16:17 MPV 8.9 fL (7.4-10.4) 08/27/24 16:17 Neut % (Auto) 53.0 % 08/27/24 16:17 Lymph % (Auto) 39.5 % 08/27/24 16:17 [place] % (Auto) 5.3 % 08/27/24 16:17 Eos % (Auto) 1.3 % 08/27/24 16:17 Baso % (Auto) 0.7 % 08/27/24 16:17 Neut # (Auto) 6.36 10^3/uL (1.8-7.7) 08/27/24 16:17 Lymph # (Auto) 4.8 10^3/uL (0.8-4.8) 08/27/24 16:17 [place] # (Auto) 0.6 10^3/uL (0.2-0.9) 08/27/24 16:17 Eos # (Auto) 0.2 10^3/uL (0.0-0.8) 08/27/24 16:17 Baso # (Auto) 0.1 10^3/uL (0.0-0.1) 08/27/24 16:17 Nucleated RBC % (auto) 0 % 08/27/24 16:17 Nucleated RBCs # 0.0 /100WBC 08/27/24 16:17 Sodium 136 mmol/L (136-145) 08/27/24 16:17 Potassium 4.1 mmol/L (3.5-5.1) 08/27/24 16:17 Chloride 102 mmol/L (98-107) 08/27/24 16:17 Carbon Dioxide 23 mmol/L (22-29) 08/27/24 16:17 Anion Gap 15.1 (5-19) 08/27/24 16:17 BUN 8 mg/dL (8-23) 08/27/24 16:17 Creatinine 0.8 mg/dL (0.5-0.9) 08/27/24 16:17 GFR Calculation 73.2 mL/min (90-130) L 08/27/24 16:17 Glucose 101 mg/dL (65-115) 08/27/24 16:17 Calculated Osmolality 280 mOsm/kg (285-295) L 08/27/24 16:17 Calcium 8.8 mg/dL (8.5-10.5) 08/27/24 16:17 Total Bilirubin 0.4 mg/dL (0.15-1.2) 08/27/24 16:17 AST 14 U/L (0-32) 08/27/24 16:17 ALT 18 U/L (0-33) 08/27/24 16:17 Alkaline Phosphatase 82 U/L (35-105) 08/27/24 16:17 Total Protein 6.6 g/dL (6.6-8.7) 08/27/24 16:17 Albumin 4.3 g/dL (3.5-5.2) 08/27/24 16:17 Globulin 2.3 g/dL (1.3-4.6) 08/27/24 16:17 Urine Color Yellow (Yellow) 08/27/24 16:15 Urine Appearance Clear (CLEAR) 08/27/24 16:15 Urine pH 6.5 (5-7) 08/27/24 16:15 Ur Specific [place] 1.003 (1.005-1.030) L 08/27/24 16:15 Urine Protein Negative (Negative) 08/27/24 16:15 Urine Glucose (UA) Negative (Normal) 08/27/24 16:15 Urine Ketones Negative (Negative) 08/27/24 16:15 Urine Blood 3+ (Negative) A 08/27/24 16:15 Urine Nitrate Negative (Negative) 08/27/24 16:15 Urine Bilirubin Negative (Negative) 08/27/24 16:15 Urine Urobilinogen 1.0 mg/dL (Negative) 08/27/24 16:15 Ur Leukocyte Esterase 1+ (Negative) A 08/27/24 16:15 Urine RBC 11-20 /hpf (0-2) H 08/27/24 16:15 Urine WBC 11-20 /hpf (0-5) H 08/27/24 16:15 Ur Squamous Epith Cells 0-5 /hpf (0-5) 08/27/24 16:15 Amorphous Sediment Not Reportable 08/27/24 16:15 Urine Bacteria None seen /hpf (NONE) 08/27/24 16:15 Hyaline Casts 0.40 /lpf 08/27/24 16:15 No radiology studies performed this visit Discharge Plan Discharge Patient Disposition: Home Clinical Impression: Urinary tract infection, Atrial fibrillation, On continuous oral anticoagulation Condition: Stable Prescriptions: New cefdinir 300 mg capsule 300 mg PO BID 7 Days Qty: 14 0RF No Action Arnuity Ellipta 100 mcg/actuation blister with device 1 inh INHALATION DAILY amiodarone [Pacerone] 200 mg Tablet 200 mg PO DAILY Qty: 60 0RF Rx Instructions: Twice daily for next 7 days followed by once daily Eliquis 5 mg Tablet 5 mg PO BID@0900,2100 Qty: 60 0RF diltiazem HCl [Cardizem CD] 360 mg capsule,extended release 24hr 360 mg PO DAILY Qty: 30 0RF diltiazem HCl [Cardizem] 30 mg tablet 30 mg PO Q8H PRN (Reason: HR persistent over 110 bpm) Qty: 14 0RF cetirizine 10 mg Tablet 10 mg PO DAILY lisinopril 5 mg tablet 5 mg PO DAILY albuterol sulfate 90 mcg/actuation HFA aerosol inhaler 1 puff INHALATION Q4H PRN (Reason: Wheezing) Discharge Orders: Discharge ED (Routine); Ordered 08/27/24 Ordered By: Chemo Morrison Referrals: Juan Pickett MD [Primary Care Provider] - Discharge Diet: Usual diet Discharge Activity: Resume usual activity Patient Instructions: Opioid Safety, Pain Management Activity Restrictions/Additional Instructions: Thank you for choosing [facility] for your healthcare needs today. It is very important that you follow up as instructed or that you return to the Emergency Department should you have concerns or if your condition changes or worsens in any way. You wee seen in the emergency room with complaint of hematuria. Urine sample shows probable bladder infection. He was given a dose of antibiotics here and will discharge you home on oral antibiotics to start tomorrow. Continue your Eliquis. Follow-up with your primary care doctor if not improving Coding Level of Care Code ED [employer] for Ruby Hoskins
[2024-08-27 16:32] LABS: Basophils # 0.1 10^3/uL (0.0-0.1); Basophils % 0.7 %; Eosinophils # 0.2 10^3/uL (0.0-0.8); Eosinophils % 1.3 %; Hematocrit 42.5 % (36-47); Lymphocytes # 4.8 10^3/uL (0.8-4.8); Lymphocytes % 39.5 %; Mean Corpuscular HGB Conc 32.7 g/dL (30-55); Mean Corpuscular Hemoglobin 28.5 pg (27-33); Mean Corpuscular Volume 87.3 fl (85-98); Mean Platelet Volume 8.9 fL (7.4-10.4); Monocytes # 0.6 10^3/uL (0.2-0.9); Monocytes % 5.3 %; Neutrophils # 6.36 10^3/uL (1.8-7.7); Nucleated Red Blood Cells % 0 %; Platelet Count 559 10^3/cmm (157-399); Red Blood Count 4.87 10^6/uL (3.85-5.65); Red Cell Distribution Width 13.3 % (12.1-15.1); White Blood Count 12.02 10^3/uL (3.29-11.43)
[2024-08-27 16:40] LABS: Bilirubin Urine Negative (Negative); Blood Urine 3+ (Negative); Glucose Urine UA Negative (Normal); Ketones Urine Negative (Negative); Leukocyte Esterase Urine 1+ (Negative); Nitrate Urine Negative (Negative); Protein Urine Negative (Negative); Specific Gravity, Urine 1.003 (1.005-1.030); Urine Appearance Clear (CLEAR); Urine Color Yellow (Yellow); pH Urine 6.5 (5-7)
[2024-08-27 16:45] LABS: Add Urine Microscopic? YES; Bacteria Urine None Seen /hpf; Squamous Epithelial Cell Urine 0-5 /hpf (0-5)
[2024-08-27 16:46] LABS: Add Urine Culture? Yes
[2024-08-27 16:50] LABS: Alanine Aminotransferase 18 U/L (0-33); Albumin Level 4.3 g/dL (3.5-5.2); Alkaline Phosphatase 82 U/L (35-105); Anion Gap 15.1 (5-19); Aspartate Amino Transferase 14 U/L (0-32); Blood Urea Nitrogen 8 mg/dL (8-23); Calcium 8.8 mg/dL (8.5-10.5); Carbon Dioxide 23 mmol/L (22-29); Chloride 102 mmol/L (98-107); Creatinine Clr Calc Pharmacy 97.1824; Globulin 2.3 g/dL (1.3-4.6); Glomerular Filtration Rate 73.2 mL/min (90-130); Glucose 101 mg/dL (65-115); Osmolality Calculated 280 mOsm/kg (285-295); Potassium 4.1 mmol/L (3.5-5.1); Sodium 136 mmol/L (136-145); Total Bilirubin 0.4 mg/dL (0.15-1.2); Total Protein 6.6 g/dL (6.6-8.7)
[2024-08-27] MEDS: cefTRIAXone 1,000 mg SDV 1000 MG IVP (17:50)
[2024-08-27 17:53] VITALS: BP 175/98; PULSE 71; O2SAT 97
[2024-08-27 18:01] VITALS: BP 175/98; PULSE 64; O2SAT 97
== END 2024-08-27 18:03 | disposition home or self-care (01) ==
PROVIDERS: Emergency Provider Family Medicine; PCP Family Medicine
DX: N39.0 Urinary tract infection, site not specified (principal); I48.91 Unspecified atrial fibrillation; Z79.01 Long term (current) use of anticoagulants; I10 Essential (primary) hypertension
CPT/HCPCS: 36415; 80053; 81001; 85025; 87086; 96374; 99284; J0696

== ENCOUNTER → 2024-09-06 15:52 | Outpatient (BNVA) | payer OTHER, SELFPAY | PROVIDERS: PCP Family Medicine; Visit Provider Nurse Practitioner Family | DX: I48.91 Unspecified atrial fibrillation (principal); I45.10 Unspecified right bundle-branch block | CPT/HCPCS: 36415; 93005 ==

== ENCOUNTER 2024-10-10 09:25 | Outpatient (CLI) | payer OTHER, SELFPAY ==
--- NOTE | 2024-10-10 09:26 | MM_ITS ---
WS: [id number] BILATERAL SCREENING DIGITAL TOMOSYNTHESIS MAMMOGRAM WITH CAD HISTORY: SCREENING COMPARISON: 10/05/2023, 09/24/2022 Bilateral CC and MLO views with tomosynthesis and synthetic mammography submitted. Computer aided det ection analyzed. Breast composition: There are scattered areas of fibroglandular density. No suspicious masses, microc alcifications or architectural distortion. Intramammary lymph nodes. MM/MM scr BI tomosynthesis [id number] IMPRESSION: BI-RADS: 2 - Benign. FOLLOW UP: 1 Year Follow-up
== END 2024-10-10 09:26 | disposition home or self-care (01) ==
LOC: RAD 09:26
PROVIDERS: PCP Family Medicine; Visit Provider Family Medicine
DX: Z12.31 Encounter for screening mammogram for malignant neoplasm of breast (principal); R92.323 Mammographic fibroglandular density, bilateral breasts
CPT/HCPCS: 77063; 77067

== ENCOUNTER 2024-10-24 09:26 | Outpatient (CLI) | payer OTHER, SELFPAY | END 2024-10-24 09:27 | disposition home or self-care (01) | LOC: SLEEP 09:28 | PROVIDERS: PCP Family Medicine; Visit Provider Family Medicine | DX: G47.33 Obstructive sleep apnea (adult) (pediatric) (principal); I48.91 Unspecified atrial fibrillation | CPT/HCPCS: G0399 ==

== ENCOUNTER → 2024-12-01 14:42 | Outpatient (BNVA) | payer OTHER, SELFPAY | PROVIDERS: PCP Family Medicine; Visit Provider Internal Medicine Cardiovascular Disease | DX: N18.9 Chronic kidney disease, unspecified (principal); E78.5 Hyperlipidemia, unspecified | CPT/HCPCS: 36415; 80076; 84443 ==

== ENCOUNTER 2024-12-12 18:29 | Emergency (ER) | payer OTHER, SELFPAY ==
[2024-12-12 18:49] VITALS: BP 162/75; PULSE 100; RESP 16; TEMP 36.6; O2SAT 96
[2024-12-12 19:16] LABS: Bilirubin Urine Negative (Negative); Blood Urine 3+ (Negative); Glucose Urine UA Negative (Normal); Ketones Urine Negative (Negative); Leukocyte Esterase Urine 1+ (Negative); Nitrate Urine Negative (Negative); Protein Urine Negative (Negative); Specific Gravity, Urine 1.005 (1.005-1.030); Urine Appearance Clear (CLEAR); Urine Color Yellow (Yellow); Urobilinogen Urine 0.2 mg/dL (Negative); pH Urine 5.5 (5-7)
[2024-12-12 19:42] LABS: UA Manual Slide Review YES; UA Slide Review UA Slide Review Perf
[2024-12-12 19:43] LABS: Add Urine Culture? Yes; Add Urine Microscopic? YES; RBC Urine 15-25 /hpf (0-2); Squamous Epithelial Cell Urine 0-4 /hpf (0-5)
[2024-12-12 20:28] LABS: Basophils # 0.1 10^3/uL (0.0-0.1); Basophils % 0.7 %; Eosinophils # 0.2 10^3/uL (0.0-0.8); Eosinophils % 1.7 %; Lymphocytes # 3.6 10^3/uL (0.8-4.8); Lymphocytes % 30.5 %; Mean Corpuscular HGB Conc 31.7 g/dL (30-55); Mean Corpuscular Hemoglobin 28.8 pg (27-33); Mean Corpuscular Volume 90.7 fl (85-98); Mean Platelet Volume 9.1 fL (7.4-10.4); Monocytes # 0.9 10^3/uL (0.2-0.9); Monocytes % 7.7 %; Neutrophils # 6.88 10^3/uL (1.8-7.7); Neutrophils % 59.1 %; Nucleated Red Blood Cells % 0 %; Platelet Count 375 10^3/cmm (157-399); Red Blood Count 4.52 10^6/uL (3.85-5.65); Red Cell Distribution Width 14.1 % (12.1-15.1); White Blood Count 11.66 10^3/uL (3.29-11.43)
--- NOTE | 2024-12-12 20:34 | CTR_ITS ---
PROCEDURE INFORMATION: Exam: CT Abdomen And Pelvis Without Contrast Exam date and time: 12/12/2024 8:40 PM Age: 59 years old Clinical indication: Pain; Other: Left flank; Additional info: Left lower back pain, be dysuria TECHNIQUE: Imaging protocol: Computed tomography of the abdomen and pelvis without contrast. Radiation optimization: All CT scans at this facility use at least one of these dose optimization techniques: automated exposure control; mA and/or kV adjustment per patient size (includes targeted exams where dose is matched to clinical indication); or iterative reconstruction. COMPARISON: CT kidney stone [id number] 05/04/2024 1:07 PM RADIATION DOSE METRICS: Total DLP (mGy-cm): 1178.93 FINDINGS: Liver: Hypodense lesion in hepatic segment 4/5 likely representing a simple cyst. Gallbladder and biliary ducts: Hyperdense material in the gallbladder likely representing biliary sludge. Pancreas: Unremarkable. Spleen: Focal hypodensities in the spleen similar to exam may represent simple cysts/hemangiomas. Adrenal glands: Unremarkable. Kidneys and ureters: Unremarkable. No nephrolithiasis or hydronephrosis. Stomach and bowel: No mechanical obstruction. No mucosal thickening. Appendix: Unremarkable. Intraperitoneal space: No free air or free fluid. Vasculature: Look mild aorta Lymph nodes: Unremarkable. Urinary bladder: Unremarkable. Reproductive: Unremarkable. Bones/joints: Mild multilevel spondylosis. Calcified disc bulge and ligamentum flavum hypertrophy at L1-L2 causes moderate spinal canal stenosis. Calcified disc bulge at L4-L5 causes severe spinal canal stenosis. Soft tissues: Unremarkable. CT/CT kidney stone [id number] IMPRESSION: No acute abdominopelvic abnormality.
--- NOTE | 2024-12-12 20:36 | ED_ITS ---
HPI - Female Genitourinary 2 General: Chief complaint: Urogenital-Female Stated complaint: Blood In Urine Time Seen by Provider: 12/12/24 20:14 Source: patient Mode of arrival: ambulatory Limitations: no limitations History of Present Illness: Patient is a 59-year-old female presents to the emergency department complaining of hematuria for the past 24 hours. She notes she has had 2 similar episodes of this in the past, at 1 point was also found to be in A-fib and was started on anticoagulation. States that she is also having some left lower back pain this time, has a history of kidney infections. She is not reporting any dysuria. No fever, nausea or vomiting. Denies history of smoking. She has not taken anything for the pain, stating that the back pain is intermittent and overall mild. Her vitals are unremarkable at this time. No other symptoms reported. Denies history of kidney stones. MD elicited complaint: back pain and other (Hematuria) Onset (ago): hour(s) (24) Location of symptoms: low back Severity: mild Female Urogenital Radiation: Non-Radiating Consistency: intermittent Urinary symptoms: Hematuria Exacerbating factors: none Relieving factors: none Associated symptoms: Deny abdominal pain, headache(s) or nausea Related Data Home Medications ?Medication ?Instructions ?Recorded ?Confirmed albuterol sulfate 90 mcg/actuation 1 puff inhalation Q 4H PRN Wheezing 05/04/24 09/06/24 aerosol inhaler cetirizine 10 mg tablet 10 mg PO DAILY 05/04/2408/19 fluticasone furoate 100 1 inh inhalation DAILY 08/1309/06/24 mcg/actuation blister powder for inhalation (Arnuity Ellipta) Previous Rx's ?Medication ?Instructions ?Recorded amiodarone 200 mg tablet (Pacerone) 200 mg PO DAILY #9 0 tabs 12/01/24 apixaban 5 mg tablet (Eliquis) 5 mg PO BID@0900,2100 # 180 tabs 12/01/24 lisinopril 5 mg tablet 5 mg PO DAILY #90 tabs 12/01 cefdinir 300 mg capsule 300 mg PO BID 10 days #20 ca ps 12/12/24 Allergies Allergy/AdvReac Type Severity Reaction Status Date / Time azithromycin (From Zithromax) Allergy ALGY-Swell Verified 12/12/24 18:54 Lip/Tongue/Throat ciprofloxacin (From Cipro) Allergy ALGY-Hives Verified 12/12/24 18:54 Egg Derived Allergy Unknown Verified 12/12/24 18:54 peanut Allergy Unknown Verified 12/12/24 18:54 Review of Systems 2 General: Reports: 10 or more systems reviewed and unremarkable except in HPI and below Const: Denies: fever(s), chills, change in appetite, change in weight or diaphoresis ENMT: Denies: throat pain or hoarseness Card: Denies: chest pain, palpitations or lightheadedness Resp: Denies: dyspnea, productive cough or wheezing GI: Denies: abdominal pain, nausea, vomiting, diarrhea, constipation, bloating, change in stool character or hematochezia : Reports: hematuria; Denies: flank pain, difficulty voiding, dysuria, urinary frequency or urinary urgency Musc: Reports: back pain; Denies: neck pain Skin/Breast: Denies: rash or new lesions Neuro: Denies: headache(s) or dizziness PFSH ED 2 PFSH: Medical History MARY (obstructive sleep apnea) Asthma Hypertension Social History Smoking and tobacco/nicotine status: never used tobacco/nicotine Physical Exam 2 Const: COMMON NORMALS: no acute distress, average body habitus, patient oriented x3, no limitations, healthy appearing, alert and well nourished G ENERAL APPEARANCE: cooperative and comfortable ORIENTATION/CONSCIOUSNESS: Yes awake Eye: COMMON NORMALS: EOMs intact bilaterally and conjunctivae normal C ONJUNCTIVA: Yes conjunctivae normal Neck/C-Spine: COMMON NORMALS: full ROM, supple, no meningeal signs and no JVD Resp: COMMON NORMALS: normal respiratory effort, No retractions, No use of accessory muscles and clear to auscultation bilaterally AUSCULTATION: clear to auscultation bilaterally, no crackles, no rales, no rhonchi and no wheezes Cardio: COMMON NORMALS: no JVD, regular rate, regular rhythm, S1 normal heart sound present, S2 normal heart sound present, No gallops present (Cardio), No clicks present (Cardio), No murmurs present (Cardio), No rub (Cardio) and Peripheral pulses 2+ throughout RATE: regular rate RHYTHM: regular rhythm HEART SOUNDS: S1 normal heart sound present and S2 normal heart sound present PERIPHERAL PULSES: Peripheral pulses 2+ throughout GI: COMMON NORMALS: Normal to inspection, nondistended, normoactive bowel sounds present, Soft to palpation, non-tender, No hepatosplenomegaly present and no masses AUSCULTATION: Yes normoactive bowel sounds PALPATION: Yes Soft to palpation, No Guarding due to palpation present (GI), No Rigid due to palpation and Yes No hepatosplenomegaly present RECTAL EXAM: deferred : COMMON NORMALS: Yes no CVA tenderness BLADDER/KIDNEY EXAM: Yes no CVA tenderness Back/Pelvis: COMMON NORMALS: no CVA tenderness Extremity: COMMON NORMALS: normal to inspection and full ROM Neuro: COMMON NORMALS: patient oriented x3, moves all extremities, no focal motor deficits and no sensory deficits noted SENSORIUM/ORIENTATION: Yes alert MENINGEAL SIGNS: Yes no meningeal signs Psych: COMMON NORMALS: mental status grossly normal, cooperative and speech normal SPEECH: Yes normal speech Skin: COMMON NORMALS: no rashes or lesions noted GENERAL SKIN EXAM: no rashes or lesions noted Course 2 Vital Signs: Vital signs: Vital Signs Temperature 97.8 F 12/12/24 18:49 Pulse Rate 100 12/12/24 18:49 Respiratory Rate 16 12/12/24 18:49 Blood Pressure 115/100 12/12/24 21:32 Pulse Oximetry 94 12/12/24 21:32 Oxygen Delivery Me thod Room Air 12/12/24 18:49 MDM - Female Medical Decision Making This patient presented with about 24 hours of hematuria, only pain reported with some mild left paralumbar muscular pain. She did note a history of pyelonephritis and states that in the past she had hematuria that subsequently turned into diagnosis of A-fib with RVR and she was started on blood thinner. Her physical exam was completely unremarkable, there is no reproducible CVA tenderness and no suprapubic tenderness. Overall vitals have been unremarkable. No complaints of palpitations, chest pain, or lightheadedness. Her CBC and CMP were unremarkable, specifically normal kidney function. Urinalysis did show red blood cells, also showed white blood cells and positive leukocyte. Wanted to rule out any stone pathology or pyelo with CT noncontrast, this was negative for any acute intra-abdominal findings. Differential diagnosis includes hemorrhagic cystitis, passed ureterolithiasis, hematuria, or bladder tumor. She had no history of smoking and my concern for this is low, though think that she would benefit from urology follow-up if the symptoms persist. With her unremarkable labs as well as unremarkable physical exam and urinalysis positive for infection, will go ahead and treat with cefdinir as she is given strict return precautions. If she continues to have bleeding, if she starts having worsening pain, or any systemic signs of illness she is encouraged to return to the ED immediately for reevaluation. However at this time is comfortable for discharge home, and denies needing any pain medication. Lab Data 12/12/24 20:19 12/12/24 20:19 Radiology Impressions Abdomen/Pelvis CT 12/12/24 20:34 IMPRESSION: No acute abdominopelvic abnormality. Laboratory Results WBC 11.66 10^3/uL (3.29-11.43) H 12/12/24 20:19 RBC 4.52 10^6/uL (3.85-5.65) 12/12/24 20:19 Hgb 13.00 g/dL (11.27-16.99) 12/12/24 20:19 Hct 41.0 % (36-47) 12/12/24 20:19 MCV 90.7 fl (85-98) 12/12/24 20:19 MCH 28.8 pg (27-33) 12/12/24 20:19 MCHC 31.7 g/dL (30-55) 12/12/24 20:19 RDW 14.1 % (12.1-15.1) 12/12/24 20:19 Plt Count 375 10^3/cmm (157-399) 12/12/24 20:19 MPV 9.1 fL (7.4-10.4) 12/12/24 20:19 Neut % (Auto) 59.1 % 12/12/24 20:19 Lymph % (Auto) 30.5 % 12/12/24 20:19 [place] % (Auto) 7.7 % 12/12/24 20:19 Eos % (Auto) 1.7 % 12/12/24 20:19 Baso % (Auto) 0.7 % 12/12/24 20:19 Neut # (Auto) 6.88 10^3/uL (1.8-7.7) 12/12/24 20:19 Lymph # (Auto) 3.6 10^3/uL (0.8-4.8) 12/12/24 20:19 [place] # (Auto) 0.9 10^3/uL (0.2-0.9) 12/12/24 20:19 Eos # (Auto) 0.2 10^3/uL (0.0-0.8) 12/12/24 20:19 Baso # (Auto) 0.1 10^3/uL (0.0-0.1) 12/12/24 20:19 Nucleated RBC % (auto) 0 % 12/12/24 20:19 Nucleated RBCs # 0.0 /100WBC 12/12/24 20:19 Sodium 141 mmol/L (136-145) 12/12/24 20:19 Potassium 3.7 mmol/L (3.5-5.1) 12/12/24 20:19 Chloride 106 mmol/L (98-107) 12/12/24 20:19 Carbon Dioxide 24 mmol/L (22-29) 12/12/24 20:19 Anion Gap 14.7 (5-19) 12/12/24 20:19 BUN 8 mg/dL (8-23) 12/12/24 20:19 Creatinine 0.9 mg/dL (0.5-0.9) 12/12/24 20:19 GFR Calculation 63.9 mL/min (90-130) L 12/12/24 20:19 Glucose 107 mg/dL (65-115) 12/12/24 20:19 Calculated Osmolality 291 mOsm/kg (285-295) 12/12/24 20:19 Calcium 9.1 mg/dL (8.5-10.5) 12/12/24 20:19 Total Bilirubin 0.6 mg/dL (0.15-1.2) 12/12/24 20:19 AST 13 U/L (0-32) 12/12/24 20:19 ALT 12 U/L (0-33) 12/12/24 20:19 Alkaline Phosphatase 90 U/L (35-105) 12/12/24 20:19 Total Protein 6.7 g/dL (6.6-8.7) 12/12/24 20:19 Albumin 4.1 g/dL (3.5-5.2) 12/12/24 20:19 Globulin 2.6 g/dL (1.3-4.6) 12/12/24 20:19 Urine Color Yellow (Yellow) 12/12/24 19:12 Urine Appearance Clear (CLEAR) 12/12/24 19:12 Urine pH 5.5 (5-7) 12/12/24 19:12 Ur Specific [place] 1.005 (1.005-1.030) 12/12/24 19:12 Urine Protein Negative (Negative) 12/12/24 19:12 Urine Glucose (UA) Negative (Normal) 12/12/24 19:12 Urine Ketones Negative (Negative) 12/12/24 19:12 Urine Blood 3+ (Negative) A 12/12/24 19:12 Urine Nitrate Negative (Negative) 12/12/24 19:12 Urine Bilirubin Negative (Negative) 12/12/24 19:12 Urine Urobilinogen 0.2 mg/dL (Negative) 12/12/24 19:12 Ur Leukocyte Esterase 1+ (Negative) A 12/12/24 19:12 Urine RBC 15-25 /hpf (0-2) H 12/12/24 19:12 Urine WBC 5-10 /hpf (0-5) H 12/12/24 19:12 Ur Squamous Epith Cells 0-4 /hpf (0-5) H 12/12/24 19:12 Amorphous Sediment Not Reportable 12/12/24 19:12 Urine Bacteria None /hpf (NONE) 12/12/24 19:12 Urine Mucus None /hpf 12/12/24 19:12 All radiology interpretation(s) finalized by discharge Discharge Plan Discharge Patient Disposition: Home Clinical Impression: Acute hemorrhagic cystitis Condition: Stable Prescriptions: New cefdinir 300 mg capsule 300 mg PO BID 10 Days Qty: 20 0RF No Action Eliquis 5 mg tablet 5 mg PO BID@0900,2100 Qty: 180 3RF amiodarone [Pacerone] 200 mg tablet 200 mg PO DAILY Qty: 90 3RF lisinopril 5 mg tablet 5 mg PO DAILY Qty: 90 3RF Arnuity Ellipta 100 mcg/actuation blister with device 1 inh INHALATION DAILY cetirizine 10 mg Tablet 10 mg PO DAILY albuterol sulfate 90 mcg/actuation HFA aerosol inhaler 1 puff INHALATION Q4H PRN (Reason: Wheezing) Discharge Orders: Discharge ED (Routine); Ordered 12/12/24 Ordered By: Robert Potter Referrals: Juan Pickett MD [Primary Care Provider] - Patient Instructions: Hemorrhagic Cystitis Activity Restrictions/Additional Instructions: Please take cefdinir as prescribed. Make sure that you are drinking plenty of fluids. Please take Tylenol for pain. Please follow-up closely with your primary care provider, and if you continue to have worsening bleeding you may require follow-up with a urologist for cystoscopy. Please see attached patient instructions for further education. Please return with any worsening of bleeding, worsening of pain, fevers, vomiting, or other symptoms. Print Language: Thai Coding Level of Care Code ED [employer] Supervisor for Ruby Hoskins
[2024-12-12 20:38] VITALS: BP 142/69; O2SAT 92
[2024-12-12 20:47] LABS: Alanine Aminotransferase 12 U/L (0-33); Albumin Level 4.1 g/dL (3.5-5.2); Alkaline Phosphatase 90 U/L (35-105); Anion Gap 14.7 (5-19); Aspartate Amino Transferase 13 U/L (0-32); Blood Urea Nitrogen 8 mg/dL (8-23); Calcium 9.1 mg/dL (8.5-10.5); Carbon Dioxide 24 mmol/L (22-29); Chloride 106 mmol/L (98-107); Creatinine Clr Calc Pharmacy 88.7442; Globulin 2.6 g/dL (1.3-4.6); Glomerular Filtration Rate 63.9 mL/min (90-130); Glucose 107 mg/dL (65-115); Osmolality Calculated 291 mOsm/kg (285-295); Potassium 3.7 mmol/L (3.5-5.1); Sodium 141 mmol/L (136-145); Total Bilirubin 0.6 mg/dL (0.15-1.2); Total Protein 6.7 g/dL (6.6-8.7)
[2024-12-12 21:03] VITALS: BP 129/74; O2SAT 95
[2024-12-12 21:32] VITALS: BP 115/100; O2SAT 94
[2024-12-12] MEDS: cefdinir 300 MG CAPSULE PO (21:53)
[2024-12-12 22:04] VITALS: BP 154/90; PULSE 79; RESP 18; O2SAT 94
== END 2024-12-12 22:06 | disposition home or self-care (01) ==
PROVIDERS: Emergency Medicine; Emergency Provider Physician Assistant; PCP Family Medicine
DX: N30.01 Acute cystitis with hematuria (principal); Z79.01 Long term (current) use of anticoagulants; I10 Essential (primary) hypertension
CPT/HCPCS: 36415; 74176; 80053; 81001; 85025; 87086; 99284

== ENCOUNTER 2024-12-27 13:28 | Outpatient (CLI) | payer OTHER, SELFPAY ==
[2024-12-27] MEDS: iohexol 350 mg/mL 500 mL Btl (per mL) IV (13:58)
--- NOTE | 2024-12-27 14:15 | CT_ITS ---
WS: [id number] CT HEAD TECHNIQUE: Noncontrast and contrast-enhanced CT of the head. CLINICAL INFORMATION: R/O IC bleed COMPARISON: None. DLP: 2106.[address] scans at [facility] use at least one of these dose optimization techniques: automated exposure control; mA and/or kV adjustment per patient size (includes targeted exams where dose is matched to clinical indication); or iterative reconstruction. FINDINGS: No evidence intracranial hemorrhage or mass effect. Ventricular system and basal cisterns are patent. Minimal small vessel changes. Mild parenchymal volume loss. Vascular calcification. Paranasal sinuses and mastoid air cells are well aerated. Normal posterior nasopharynx. No abnormal intracranial enhancement. No other suspicious findings. CT/CT head wo/w con [id number] IMPRESSION: 1. No evidence intracranial hemorrhage or mass effect. 2. Minimal small vessel changes. Mild parenchymal volume loss. 3. No abnormal intracranial enhancement.
== END 2024-12-27 13:29 | disposition home or self-care (01) ==
PROVIDERS: PCP Family Medicine; Visit Provider Internal Medicine Cardiovascular Disease
DX: I48.0 Paroxysmal atrial fibrillation (principal); R51.9 Headache, unspecified; I10 Essential (primary) hypertension; J45.909 Unspecified asthma, uncomplicated; G47.33 Obstructive sleep apnea (adult) (pediatric); G31.89 Other specified degenerative diseases of nervous system; I67.2 Cerebral atherosclerosis
CPT/HCPCS: 70470